=== PATIENT | male | born 1945 | race Caucasian/White ===

== ENCOUNTER 2018-06-08 15:35 | Inpatient (IN) ==
--- NOTE | 2018-06-08 16:06 | ED ---
HPI General Chief complaint: Extremity Injury, Lower Stated complaint: Phy Sent Time Seen by Provider: 06/08/18 15:45 Source: patient, family and RN notes reviewed Mode of arrival: ambulatory Limitations: no limitations History of Present Illness HPI Narrative: 73-year-old male presents to the emergency department for evaluation of bilateral lower extremity edema, weeping, erythema to the right lower extremity. Patient states he has had the drainage for approximately month. However, the swelling has worsened over the past 14 days. He also reports pain to the right leg, especially with walking. Current pain is 8/10. He has no pain to the left leg. Patient states he had fevers up to 102 on Tuesday and Tuesday. He denies any fevers now. He denies any chest pain or shortness of breath. He denies any abdominal pain. No nausea, vomiting, diarrhea. He attempted to go to [facility] yesterday, but the wait was too long so he went to an urgent care center who referred him to the emergency department. Patient reports history of coronary artery disease, skin cancer, hypertension, knee replacement. He is not currently on anticoagulants. Patient is here from [place], right at the end of March, will leave the end of August. Moderate severity. MD Complaint: Reports extremity pain and extremity swelling Onset (ago): week(s) (2) Pain Consistency: constant Location: Reports left, right and lower extremity Severity scale (1-10): 8 (RLE only) Quality: Reports aching Radiation: Reports none Relieving factors: immobilization Exacerbating factors: walking Associated symptoms: Reports fever; Denies chest pain, shortness of breath, myalgias, arthralgias and rash Related Data Home Medications Medication Instructions Recorded Confirmed albuterol sulfate [ProAir HFA] 2 puff INHALATION Q6H PRN 06/08/18 06/08/18 aspirin 81 mg PO DAILY 06/08/18 06/08/18 atorvastatin 40 mg PO QPM 06/08/18 06/08/18 bumetanide 2 mg PO DAILY 06/08/18 06/08/18 furosemide [Lasix] 40 mg PO DAILY 06/08/18 06/08/18 isosorbide mononitrate 60 mg PO BID 06/08/18 06/08/18 metoprolol succinate 100 mg PO DAILY 06/08/18 06/08/18 naproxen-diphenhydramine [Aleve PM] 1 tab PO HS 06/08/18 06/08/18 nitroglycerin 0.4 mg SUBLINGUAL Q5-15M PRN 06/08/18 06/08/18 ranitidine HCl [Zantac] 300 mg PO DAILY PRN 06/08/18 06/08/18 tiotropium bromide [Spiriva with 1 cap INHALATION DAILY 06/08/18 06/08/18 HandiHaler] Allergies Allergy/AdvReac Type Severity Reaction Status Date / Time Penicillins Allergy Severe syncope Verified 06/08/18 15:59 [facility] Social History Social History Substance History: No History of Abuse Second Hand Smoke Exposure: No Smoking Status: Former smoker How Often Do You Have a Drink Containing Alcohol: 2 to 4 times a month Exam Narrative Exam Narrative: GENERAL: Well-nourished, well-developed male patient, afebrile SKIN: Focused skin assessment warm/dry. Right lower extremity is erythematous from the toes to just past the knee with multiple weeping areas. Patient has some weeping areas to the left ankle with some mild erythema. HEAD: Normocephalic. Atraumatic EYES: No scleral icterus. No injection or drainage. NECK: Supple, trachea midline. No JVD or lymphadenopathy. CARDIOVASCULAR: Regular rate and rhythm without murmurs, gallops, or rubs. Bilateral pedal pulses are 2+ RESPIRATORY: Breath sounds equal bilaterally. No accessory muscle use. Lung sounds are clear to auscultation GASTROINTESTINAL: Abdomen soft, non-tender, nondistended. MUSCULOSKELETAL: No cyanosis. Bilateral 3+ lower extremity edema BACK: Nontender without obvious deformity. No CVA tenderness. Course Initial Documented Vital Signs Temperature 97.4 F L 06/08/18 15:40 Pulse Rate 100 H 06/08/18 15:40 Respiratory Rate 24 06/08/18 15:40 Blood Pressure 115/65 06/08/18 15:40 Pulse Oximetry 98 06/08/18 15:40 Last Documented Vital Signs Temperature 97.7 F 06/09/18 08:00 Pulse Rate 100 H 06/09/18 08:00 Respiratory Rate 18 06/09/18 08:00 Blood Pressure 118/70 06/09/18 08:00 Pulse Oximetry 94 L 06/09/18 08:00 Medical Decision Making MDM Narrative Medical decision making narrative: 73-year-old male presents to the emergency department for evaluation of bilateral lower extremity edema, weeping, erythema to the right lower extremity. IV access obtained. EKG, CBC, CMP, lactic acid, magnesium, PTT, PT/INR, blood cultures x2, chest x-ray, venous Doppler ultrasound bilateral lower extremities are ordered and pending. CBC shows leukocytosis of 16.3, left shift with neutrophils of 92.2. CMP shows hypokalemia of 3.2, BUN 36, creatinine of 1.52. Lactic acid is 1.7. Magnesium is 1.9. PTT is 37.5. PT/INR is 11.9/1.2. Chest x-ray shows the lungs are clear. US is negative for DVT. Patient is given Lasix 20 mg IV, Vancomycin 1 gm IV. His EKG shows atrial fibrillation which patient states he does not have a history of. Medical Screen Exam Complete: Yes Emergency Medical Condition: Yes Differential Diagnosis Differential Diagnosis: cellulitis vs. CHF vs. edema vs. electrolyte abnormality Medical Records Medical records reviewed: Yes I reviewed the patient's medical records. Lab Data Result diagrams: 06/09/18 04:28 06/09/18 04:28 Lab Results 06/08/18 06/08/18 06/08/18 Range/Units 16:06 16:06 16:06 WBC 16.3 H (4.0-11.0) th/mm3 RBC 4.31 L (4.50-5.90) mil/mm3 Hgb 13.8 (13.0-17.0) gm/dL Hct 40.8 (39.0-51.0) % MCV 94.8 (80.0-100.0) fL MCH 32.1 (27.0-34.0) pg MCHC 33.8 (32.0-36.0) % RDW 14.3 (11.6-17.2) % Plt Count 160 (150-450) th/mm3 MPV 9.2 (7.0-11.0) fL Neut % (Auto) 92.2 H (16.0-70.0) % Lymph % (Auto) 4.1 L (9.0-44.0) % Trego % (Auto) 3.6 (0.0-8.0) % Eos % (Auto) 0.0 (0.0-4.0) % Baso % (Auto) 0.1 (0.0-2.0) % Neut # (Auto) 15.0 H (1.8-7.7) th/mm3 Lymph # (Auto) 0.7 L (1.0-4.8) th/mm3 Trego # (Auto) 0.6 (0.0-0.9) th/mm3 Eos # (Auto) 0.0 (0.0-0.4) th/mm3 Baso # (Auto) 0.0 (0.0-0.2) th/mm3 WBC Differential . Differential Comment Auto diff final PT 11.9 H (9.8-11.6) sec INR 1.2 Ratio APTT 37.5 H (23.4-31.7) sec Sodium 140 (136-145) meq/L Potassium 3.2 L (3.5-5.1) meq/L Chloride 97 L (98-107) meq/L Carbon Dioxide 33.0 H (21.0-32.0) meq/L Anion Gap 10 (5-15) meq/L BUN 36 H (7-18) mg/dL Creatinine 1.52 H (0.60-1.30) mg/dL Estimated GFR 45 L (>89) mL/min Random Glucose 116 H (74-106) mg/dL Lactic Acid (0.4-2.0) mmol/L Calcium 9.2 (8.5-10.1) mg/dL Magnesium 1.9 (1.5-2.5) mg/dL Total Bilirubin 5.6 H (0.2-1.0) mg/dL AST 31 (15-37) U/L ALT 31 (12-78) U/L Alkaline Phosphatase 91 (45-117) U/L Total Creatine Kinase (39-308) U/L Troponin I (0.02-0.05) ng/mL B-Natriuretic Peptide (0-100) pg/mL Total Protein 7.8 (6.4-8.2) g/dL Albumin 3.2 L (3.4-5.0) g/dL TSH (0.358-3.740) uIU/mL Free T4 (0.76-1.46) ng/dL 06/08/18 06/08/18 06/08/18 Range/Units 16:06 16:06 16:18 WBC (4.0-11.0) th/mm3 RBC (4.50-5.90) mil/mm3 Hgb (13.0-17.0) gm/dL Hct (39.0-51.0) % MCV (80.0-100.0) fL MCH (27.0-34.0) pg MCHC (32.0-36.0) % RDW (11.6-17.2) % Plt Count (150-450) th/mm3 MPV (7.0-11.0) fL Neut % (Auto) (16.0-70.0) % Lymph % (Auto) (9.0-44.0) % Trego % (Auto) (0.0-8.0) % Eos % (Auto) (0.0-4.0) % Baso % (Auto) (0.0-2.0) % Neut # (Auto) (1.8-7.7) th/mm3 Lymph # (Auto) (1.0-4.8) th/mm3 Trego # (Auto) (0.0-0.9) th/mm3 Eos # (Auto) (0.0-0.4) th/mm3 Baso # (Auto) (0.0-0.2) th/mm3 WBC Differential Differential Comment PT (9.8-11.6) sec INR Ratio APTT (23.4-31.7) sec Sodium (136-145) meq/L Potassium (3.5-5.1) meq/L Chloride (98-107) meq/L Carbon Dioxide (21.0-32.0) meq/L Anion Gap (5-15) meq/L BUN (7-18) mg/dL Creatinine (0.60-1.30) mg/dL Estimated GFR (>89) mL/min Random Glucose (74-106) mg/dL Lactic Acid 1.7 (0.4-2.0) mmol/L Calcium (8.5-10.1) mg/dL Magnesium (1.5-2.5) mg/dL Total Bilirubin (0.2-1.0) mg/dL AST (15-37) U/L ALT (12-78) U/L Alkaline Phosphatase (45-117) U/L Total Creatine Kinase 78 (39-308) U/L Troponin I Less than 0.02 L (0.02-0.05) ng/mL B-Natriuretic Peptide 245 H (0-100) pg/mL Total Protein (6.4-8.2) g/dL Albumin (3.4-5.0) g/dL TSH (0.358-3.740) uIU/mL Free T4 (0.76-1.46) ng/dL 06/09/18 06/09/18 06/09/18 Range/Units 00:42 04:28 04:28 WBC 13.2 H (4.0-11.0) th/mm3 RBC 3.78 L (4.50-5.90) mil/mm3 Hgb 12.3 L (13.0-17.0) gm/dL Hct 35.3 L (39.0-51.0) % MCV 93.5 (80.0-100.0) fL MCH 32.6 (27.0-34.0) pg MCHC 34.9 (32.0-36.0) % RDW 14.2 (11.6-17.2) % Plt Count 146 L (150-450) th/mm3 MPV 9.2 (7.0-11.0) fL Neut % (Auto) 86.9 H (16.0-70.0) % Lymph % (Auto) 6.7 L (9.0-44.0) % Trego % (Auto) 6.1 (0.0-8.0) % Eos % (Auto) 0.2 (0.0-4.0) % Baso % (Auto) 0.1 (0.0-2.0) % Neut # (Auto) 11.5 H (1.8-7.7) th/mm3 Lymph # (Auto) 0.9 L (1.0-4.8) th/mm3 Trego # (Auto) 0.8 (0.0-0.9) th/mm3 Eos # (Auto) 0.0 (0.0-0.4) th/mm3 Baso # (Auto) 0.0 (0.0-0.2) th/mm3 WBC Differential . Differential Comment Auto diff final PT (9.8-11.6) sec INR Ratio APTT (23.4-31.7) sec Sodium 141 (136-145) meq/L Potassium 3.2 L (3.5-5.1) meq/L Chloride 101 (98-107) meq/L Carbon Dioxide 32.7 H (21.0-32.0) meq/L Anion Gap 7 (5-15) meq/L BUN 29 H (7-18) mg/dL Creatinine 0.99 (0.60-1.30) mg/dL Estimated GFR 74 L (>89) mL/min Random Glucose 81 (74-106) mg/dL Lactic Acid (0.4-2.0) mmol/L Calcium 8.4 L D (8.5-10.1) mg/dL Magnesium (1.5-2.5) mg/dL Total Bilirubin 3.9 H (0.2-1.0) mg/dL AST 48 H (15-37) U/L ALT 39 (12-78) U/L Alkaline Phosphatase 87 (45-117) U/L Total Creatine Kinase 57 (39-308) U/L Troponin I Less than 0.02 L (0.02-0.05) ng/mL B-Natriuretic Peptide (0-100) pg/mL Total Protein 6.6 D (6.4-8.2) g/dL Albumin 2.6 L D (3.4-5.0) g/dL TSH 0.736 (0.358-3.740) uIU/mL Free T4 1.26 (0.76-1.46) ng/dL Imaging Data Radiologist's impression: Chest X-Ray 06/08/18 15:59 CONCLUSION: The lungs are clear. Venous Doppler Study 06/08/18 15:59 CONCLUSION: 1. The study is negative for bilateral lower extremity deep venous thrombosis. ECG Data EKG Prior to Arrival: No Attestation: I personally reviewed and interpreted this ECG as follows: Discharge Plan Discharge Disposition Patient Disposition: ED Admit(ED Internal Use Only) Discharge Order Discharge Orders: ED Use Only Admit Order (Routine); Ordered 06/08/18 Ordered By: Марина Pathak Discharge Details Diagnosis: Cellulitis, Atrial fibrillation Physicians Team ED Provider: Lisa Fairchild ED Midlevel Provider: Марина Pathak Attending Provider: Krzysztof Ramires Other Providers: Jay Pendleton Status ED Status: Left Department Discharge Information Discharge Date/Time: 06/08/18 21:40
--- NOTE | 2018-06-08 16:19 | XR ---
EXAM DATE: 06/08/2018 4:16 PM EST AGE/SEX: 73 years / Male INDICATIONS: Short of breath CLINICAL DATA: This is the patient's initial encounter. Patient reports that signs and symptoms have been present for 1 day and indicates a pain score of 0/10. MEDICAL/SURGICAL HISTORY: Diabetes mellitus type II. Hypertension. None. COMPARISON: No prior exams available for comparison. FINDINGS: A single AP view of the chest demonstrates the lungs to be symmetrically aerated without evidence of mass, infiltrate or effusion. The cardiomediastinal contours are unremarkable. Osseous structures a re intact. CONCLUSION: The lungs are clear. Electronically signed by: Simran Dueñas MD Board Certified Radiologist 06/08/2018 4:18 PM EST
[2018-06-08 16:47] LABS: Baso % (Auto) 0.1 % (0.0-2.0); Hematocrit 40.8 % (39.0-51.0); Hemoglobin 13.8 gm/dL (13.0-17.0); Lymph # (Auto) 0.7 th/mm3 (1.0-4.8); Lymph % (Auto) 4.1 % (9.0-44.0); Mean Corpuscular HGB Conc 33.8 % (32.0-36.0); Mean Corpuscular Hemoglobin 32.1 pg (27.0-34.0); Mean Corpuscular Volume 94.8 fL (80.0-100.0); Mean Platelet Volume 9.2 fL (7.0-11.0); Mono # (Auto) 0.6 th/mm3 (0.0-0.9); Mono % (Auto) 3.6 % (0.0-8.0); Neut % (Auto) 92.2 % (16.0-70.0); Platelet Count 160 th/mm3 (150-450); Red Blood Count 4.31 mil/mm3 (4.50-5.90); Red Cell Distribution Width 14.3 % (11.6-17.2); White Blood Count 16.3 th/mm3 (4.0-11.0)
[2018-06-08 16:55] LABS: Activated Partial Thrombo Time 37.5 sec (23.4-31.7); INR 1.2 Ratio; Prothrombin Time 11.9 sec (9.8-11.6)
[2018-06-08 17:00] LABS: Albumin 3.2 g/dL (3.4-5.0); Anion Gap 10 meq/L (5-15); Aspartate Aminotransferase 31 U/L (15-37); Blood Urea Nitrogen 36 mg/dL (7-18); Calcium 9.2 mg/dL (8.5-10.1); Chloride 97 meq/L (98-107); Glomerular Filtration Rate 45 mL/min (>89); Glucose,Random 116 mg/dL (74-106); Magnesium 1.9 mg/dL (1.5-2.5); Potassium 3.2 meq/L (3.5-5.1); Sodium 140 meq/L (136-145)
[2018-06-08 17:03] LABS: Alanine Aminotransferase 31 U/L (12-78); Alkaline Phosphatase 91 U/L (45-117); Total Protein 7.8 g/dL (6.4-8.2)
--- NOTE | 2018-06-08 17:20 | US ---
EXAM DATE: 06/08/2018 5:16 PM EST AGE/SEX: 73 years / Male INDICATIONS: Bilateral leg swelling. CLINICAL DATA: This is the patient's initial encounter. Patient reports that signs and symptoms have been present for 1 day and indicates a pain score of 2/10. MEDICAL/SURGICAL HISTORY: Carcinoma, basal cell. Hypertension. 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 CAD. COPD. High cholesterol. . Arthroscopic knee surgery. Knee dede int replacement. COMPARISON: No prior exams available for comparison. TECHNIQUE: Venous ultrasound of both lower extremities was performed from the inguinal ligament to t he proximal calf. Real-time, color Doppler and spectral tracing, compression and augmentation techni ques were used. FINDINGS: Right Leg: Normal compression of the deep venous system from the inguinal region to the proximal dajuan f. No echogenic clot is seen. Normal response of the venous system to augmentation and respiration. Left Leg: Normal compression of the deep venous system from the inguinal region to the proximal calf . No echogenic clot is seen. Normal response of the venous system to augmentation and respiration. Other: None. CONCLUSION: 1. The study is negative for bilateral lower extremity deep venous thrombosis. Electronically signed by: Moreno Dowd MD Board Certified Radiologist 06/08/2018 5:19 PM EST
[2018-06-08] MEDS ORDERED: Vancomycin Inj 1,000 MG in Sodium Chlor 0.9% Inj 250 ML IV.SIG ONE (17:27)
--- NOTE | 2018-06-08 18:21 | P.HPFP ---
History of Present Illness Primary Care Physician: Bradford De La Cruz <Krzysztof Ramires - 06/09/18 11:17> Bradford De La Cruz <Terence MartelStephanie B - 06/08/18 18:21> Chief Complaint: Right lower extremity pain and swelling <Stephanie Stone - 06/08/18 23:54> History of Present Illness: 73-year-old male presents to the emergency department for evaluation of bilateral lower extremity edema, blistering, purulent discharge with spreading erythema to the right lower extremity for the past few days. Patient states he has had multiple areas of skin breakdown on the legs for greater than 2 months but noticed significantly increased redness and swelling of the top of the right foot about a week ago which continued to spread up the leg to the knee by yesterday. He was seen in urgent care, by Dr. Guido who referred him to the emergency department today. He notes that the skin "started to blister up "and had serosanguineous drainage for the past day or 2, and notes that today it looks more like pus. His , who used to work as a nurse has been attempting to apply dressings daily to these wounds. He notes mild to moderate pain in the leg, which is worse with weightbearing. Denies recent trauma to the leg. Denies numbness, tingling or weakness of the leg. Patient admits to a fever of up to 102F on Tuesday and Tuesday of this week, with intermittent chills overnight. He has been taking Aleve 2 times daily at home for pain in the leg. Patient also notes shortness of breath, which has increased in the past couple of days. He has shortness of breath at baseline due to COPD, for which he uses an albuterol and ipratropium inhalers daily. He denies chest pain, palpitations , N/V/D, constipation, or dysuria. Past medical history: COPD CAD, 3 vessel bypass without stent placement due to occlusion HTN BCC SCC melanoma Past surgical history: Three-vessel cardiac bypass Bilateral total knee replacement Social history: Patient is originally from [place] and spends half the year in [place], from March to August, and the rest of the year back in [place]. Former smoker, quit this year. Greater than 20 pack history of smoking. Drinks alcohol occasionally, less than once a week. Denies illicit drug use. <Stephanie Stone 02/22/19 01:31> - Diagnosis (1) Sepsis (2) Cellulitis (3) Atrial fibrillation (4) Hypokalemia (5) CHF (congestive heart failure) (6) Nutrition, metabolism, and development symptoms (7) DVT prophylaxis <Krzysztof Ramires 06/09/18 11:17> (1) Sepsis (2) Cellulitis (3) Atrial fibrillation (4) Hypokalemia (5) CHF (congestive heart failure) (6) Nutrition, metabolism, and development symptoms (7) DVT prophylaxis <[facility] Stephanie Martel 06/09/18 01:14> Inpatient Certification: I certify that the inpatient services were ordered in accordance with Medicare regulations governing the order. This includes certification that hospital inpatient services are reasonable and necessary and in the case of services not specified as inpatient-only under 42 CFR 419.22(n), that they are appropriately provided as inpatient services in accordance to with the 2-midnight benchmark under 43 CFR 412.3(e) <Krzysztof Ramires 06/09/18 11:17> Review of Systems Constitutional: Reports chills, Reports fever(s), Denies weakness <[place] [id number] Stephanie 06/09/18 01:31> Eyes: Denies change in vision, Denies discharge <[place] [id number] 01:31> Ears, Nose, Mouth, and Throat: Denies nasal congestion, Denies nasal discharge, Denies sore throat <[place] [id number] 06/09/18 01:31> Cardiovascular: Denies chest pain, Denies irregular heart rhythm <[place] [id number] Stephanie 06/09/18 01:31> Respiratory: Denies coughing up blood, Denies shortness of breath, Denies wheezing <[place] [id number] 06/09/18 01:31> Gastrointestinal: Denies abdominal pain, Denies loose stools, Denies nausea, Denies vomiting <[place] [id number] 06/09/18 01:31> Genitourinary: Denies blood in urine, Denies painful urination <[place] [id number] Stephanie 06/09/18 01:31> Musculoskeletal: Reports abnormal walking (Due to pain on weightbearing of right leg), Denies muscle weakness, Denies numbness, Denies tingling <Teodoramatt Tahmina Stephanie Gant 06/09/18 01:31> Skin/Breast: Reports lesions <Teodoramatt Stephanie Martel 06/09/18 01:31> PMFSH - History History Provided By: Patient, Family Member <Stephanie Stone 06/08/18 18: 21> - Medical History Medical History: Medical History (Last Updated 06/08/18 @ 16:02 by [employer]) Basal cell carcinoma Blockage of coronary artery of heart CAD (coronary artery disease) COPD (chronic obstructive pulmonary disease) Chest pain HTN (hypertension) High cholesterol Squamous cell carcinoma <Krzysztof Ramires 06/09/18 11:17> Medical History (Last Updated 06/08/18 @ 16:02 by [employer]) Basal cell carcinoma Blockage of coronary artery of heart CAD (coronary artery disease) COPD (chronic obstructive pulmonary disease) Chest pain HTN (hypertension) High cholesterol Squamous cell carcinoma <Terence MartelStephanie Gant 06/08/18 18:21> - Surgical History Surgical History: Surgical History (Last Updated 06/08/18 @ 16:02 by [employer]) H/O arthroscopic knee surgery Knee joint replacement status <GlennKrzysztof michaud 06/09/18 11:17> Surgical History (Last Updated 06/08/18 @ 16:02 by [employer]) H/O arthroscopic knee surgery Knee joint replacement status <Terence MartelStephanie 06/08/18 18:21> - Tobacco History Second Hand Smoke Exposure: No <Terence TahminaStephanie Gant 06/08/18 18:21> Tobacco Use In Past 30 Days: No <Terence MartelStephanie Gant 06/08/18 18:21> Smoking Status: Former smoker <Terence TahminaStephanie Gant 06/08/18 18:21> - Alcohol History How Often Do You Have a Drink Containing Alcohol: Never <Terence TahminaStephanie Gant 06/08/18 18:21> - Substance Use History Substance History: No History of Abuse <Terence TahminaStephanie Gant 06/08/18 18:21> - Immunization History Tetanus Immunization: <5 Years <Terence TahminaStephanie Gant 06/08/18 18:21> Medications and Allergies Allergies Allergy/AdvReac Type Severity Reaction Status Date / Time Penicillins Allergy Severe syncope Verified 06/08/18 15:59 <Krzysztof Ramires - 06/09/18 11:17> Home Medications Medication Instructions Recorded Confirmed Type albuterol sulfate [ProAir HFA] 2 puff INHALATION Q6H PRN 06/08/18 06/08/18 History aspirin 81 mg PO DAILY 06/08/18 06/08/18 History atorvastatin 40 mg PO QPM 06/08/18 06/08/18 History bumetanide 2 mg PO DAILY 06/08/18 06/08/18 History furosemide [Lasix] 40 mg PO DAILY 06/08/18 06/08/18 History isosorbide mononitrate 60 mg PO BID 06/08/18 06/08/18 History metoprolol succinate 100 mg PO DAILY 06/08/18 06/08/18 History naproxen-diphenhydramine [Aleve PM] 1 tab PO HS 06/08/18 06/08/18 History nitroglycerin 0.4 mg SUBLINGUAL Q5-15M PRN 06/08/18 06/08/18 History ranitidine HCl [Zantac] 300 mg PO DAILY PRN 06/08/18 06/08/18 History tiotropium bromide [Spiriva with 1 cap INHALATION DAILY 06/08/18 06/08/18 History HandiHaler] <Krzysztof Ramires - 06/09/18 11:17> Active Medications: Active Medications Acetaminophen (Tylenol) 650 mg PO Q4H PRN PRN Reason: Temp > 100.4 Albuterol (Ventolin Hfa Inh) 2 puff INH Q6H PRN PRN Reason: Shortness Of Breath Aspirin (Ecotrin) 81 mg PO DAILY [facility] Last Admin: 06/09/18 09:06 Dose: 81 mg Atorvastatin Calcium (Lipitor) 40 mg PO DAILY@1800 [facility] Digoxin (Lanoxin) 125 mcg PO DAILY [facility] Heparin Sodium (Porcine) (Heparin Inj) 5,000 units SQ DAILY [facility] Last Admin: 06/09/18 09:06 Dose: 5,000 units Vancomycin HCl 1,500 mg/ (Sodium Chloride) 515 mls @ 257.5 mls/hr IV.SIG Q18H [facility] Metoprolol Succinate (Toprol Xl) 100 mg PO DAILY [facility] Last Admin: 06/09/18 09:06 Dose: 100 mg Miscellaneous Information ([facility] Ordered Lab Info) 0 each OTHER ONCE ONE Stop: 06/11/18 01:46 Ondansetron HCl (Zofran Inj) 4 mg IV.PUSH Q6H PRN PRN Reason: NAUSEA OR VOMITING Pharmacy Profile Note (Vancomycin Consult Pharmacy) 1 each OTHER UNSCH PRN PRN Reason: Pharmacy to dose Sodium Chloride (Ns Flush) 2 ml IV.FLUSH BID [facility] Last Admin: 06/09/18 09:07 Dose: 2 ml Sodium Chloride (Ns Flush) 2 ml IV.FLUSH PRN PRN PRN Reason: FLUSH AFTER USING IV ACCESS Tiotropium Java (Spiriva 18 Mcg Inh) 18 mcg INH DAILY [facility] Last Admin: 06/09/18 09:07 Dose: 18 mcg <Krzysztof Ramires - 06/09/18 11:17> Active Medications Vancomycin HCl 1,000 mg/ (Sodium Chloride) 250 mls @ 250 mls/hr IV.SIG ONCE ONE Stop: 06/08/18 18:26 <Stephanie Stone - 06/08/18 18:37> Exam Vital signs: Vital Signs 06/08/18 15:40 06/08/18 16:05 06/08/18 16:30 Temperature 97.4 F L Pulse Rate 100 H 80 Respiratory Rate 24 18 Blood Pressure 115/65 106/56 L Pulse Oximetry 98 97 97 06/08/18 16:36 06/08/18 17:53 06/08/18 19:24 Temperature Pulse Rate 100 H Respiratory Rate 15 Blood Pressure 101/54 L Pulse Oximetry 100 100 98 06/08/18 20:55 06/08/18 21:15 06/09/18 00:00 Temperature 97.9 F 98 F Pulse Rate 118 H 99 H 102 H Respiratory Rate 18 18 Blood Pressure 109/61 116/75 Pulse Oximetry 95 98 06/09/18 04:00 06/09/18 04:15 06/09/18 04:50 Temperature 97.8 F Pulse Rate 104 H 91 H Respiratory Rate 17 Blood Pressure 113/68 Pulse Oximetry 100 96 06/09/18 08:00 06/09/18 11:14 Temperature 97.7 F Pulse Rate 100 H Respiratory Rate 18 Blood Pressure 118/70 Pulse Oximetry 94 L 94 L Intake & Output 06/08/18 06/09/18 06/09/18 18:59 06:59 18:59 Intake Total 1590 / 1590 Output Total 850 / 850 Balance 740 / 740 Weight 124.284 kg 124.5 kg Intake: IV 1350 / 1350 NS Inj 1,000 ML @ 1000 mls/hr 1000 / 1000 IV.SIG BOLUS MARQUITA Rx#:[id number] Vancomycin Inj 1,000 MG In NS 250 / 250 Inj 250 ML @ 250 mls/hr IV.SIG ONCE ONE Rx#:[id number] Vancomycin Inj 500 MG In NS Inj 100 / 100 100 ML @ 200 mls/hr IV.SIG ONCE ONE Rx#:[id number] Oral 240 / 240 Output: Urine 850 / 850 Other: Date of Last Bowel Movement 06/08/18 # Bowel Movements 0 Weight On Admission 121.8 kg <Krzysztof Ramires - 06/09/18 11:17> Vital Signs 06/08/18 15:40 06/08/18 16:05 06/08/18 16:30 Temperature 97.4 F L Pulse Rate 100 H 80 Respiratory Rate 24 18 Blood Pressure 115/65 106/56 L Pulse Oximetry 98 97 97 06/08/18 16:36 06/08/18 17:53 Temperature Pulse Rate Respiratory Rate Blood Pressure Pulse Oximetry 100 100 Intake & Output 06/07/18 06/08/18 06/08/18 18:59 06:59 18:59 Weight 124.284 kg <Terence MartelStephanie B - 06/08/18 18:21> Narrative: GENERAL: 73-year-old, obese male sitting up in bed. In no acute distress. SKIN: Warm and dry. Right lower extremity with significant erythema extending from dorsal foot to anterior knee, including posterior thigh up to gluteal crease. 3+ pitting edema. Large area covering cath with obvious blistering, increased warmth and purulent drainage. Left lower extremity with multiple lesions on anterior yoon measuring between 1-3 cm in diameter with purulent drainage and surrounding erythema without significant fluctuance or induration. HEAD: Atraumatic. Normocephalic. EYES: EMOI. PERRLA. No scleral icterus. No injection or drainage. ENT: No nasal bleeding or discharge. Mucous membranes pink and moist. Airway patent. CARDIOVASCULAR: Regular rate and rhythm. No murmur. RESPIRATORY: No accessory muscle use. Clear to auscultation with equal breath sounds. No crackles, wheeze, rales or rhonchi. GASTROINTESTINAL: Abdomen soft, non-tender, nondistended. Hepatic and splenic margins not palpable. MUSCULOSKELETAL: Extremities without clubbing, cyanosis, or edema. No obvious deformities. No calf tenderness. NEUROLOGICAL: Awake and alert. No obvious cranial nerve deficits. Motor grossly within normal limits. Five out of 5 muscle strength in the arms and legs. Normal speech. PSYCHIATRIC: Appropriate mood and affect; insight and judgment normal. <Stephanie Stone - 06/09/18 01:31> Results - Labs Result diagrams: 06/09/18 04:28 06/09/18 04:28 <Krzysztof Ramires - 06/09/18 11:17> Abnormal lab results 06/08/18 06/08/18 06/08/18 Range/Units 16:06 16:06 16:06 WBC 16.3 H (4.0-11.0) th/mm3 RBC 4.31 L (4.50-5.90) mil/mm3 Hgb (13.0-17.0) gm/dL Hct (39.0-51.0) % Plt Count (150-450) th/mm3 Neut % (Auto) 92.2 H (16.0-70.0) % Lymph % (Auto) 4.1 L (9.0-44.0) % Neut # (Auto) 15.0 H (1.8-7.7) th/mm3 Lymph # (Auto) 0.7 L (1.0-4.8) th/mm3 PT 11.9 H (9.8-11.6) sec APTT 37.5 H (23.4-31.7) sec Potassium 3.2 L (3.5-5.1) meq/L Chloride 97 L (98-107) meq/L Carbon Dioxide 33.0 H (21.0-32.0) meq/L BUN 36 H (7-18) mg/dL Creatinine 1.52 H (0.60-1.30) mg/dL Estimated GFR 45 L (>89) mL/min Random Glucose 116 H (74-106) mg/dL Calcium (8.5-10.1) mg/dL Total Bilirubin 5.6 H (0.2-1.0) mg/dL Direct Bilirubin (0.0-0.2) mg/dL Indirect Bilirubin (0.0-0.8) mg/dL AST (15-37) U/L Troponin I (0.02-0.05) ng/mL B-Natriuretic Peptide (0-100) pg/mL Albumin 3.2 L (3.4-5.0) g/dL 06/08/18 06/08/18 06/09/18 Range/Units 16:06 16:06 00:42 WBC (4.0-11.0) th/mm3 RBC (4.50-5.90) mil/mm3 Hgb (13.0-17.0) gm/dL Hct (39.0-51.0) % Plt Count (150-450) th/mm3 Neut % (Auto) (16.0-70.0) % Lymph % (Auto) (9.0-44.0) % Neut # (Auto) (1.8-7.7) th/mm3 Lymph # (Auto) (1.0-4.8) th/mm3 PT (9.8-11.6) sec APTT (23.4-31.7) sec Potassium (3.5-5.1) meq/L Chloride (98-107) meq/L Carbon Dioxide (21.0-32.0) meq/L BUN (7-18) mg/dL Creatinine (0.60-1.30) mg/dL Estimated GFR (>89) mL/min Random Glucose (74-106) mg/dL Calcium (8.5-10.1) mg/dL Total Bilirubin (0.2-1.0) mg/dL Direct Bilirubin (0.0-0.2) mg/dL Indirect Bilirubin (0.0-0.8) mg/dL AST (15-37) U/L Troponin I Less than 0.02 L Less than 0.02 L (0.02-0.05) ng/mL B-Natriuretic Peptide 245 H (0-100) pg/mL Albumin (3.4-5.0) g/dL 06/09/18 06/09/18 06/09/18 Range/Units 04:28 04:28 04:28 WBC 13.2 H (4.0-11.0) th/mm3 RBC 3.78 L (4.50-5.90) mil/mm3 Hgb 12.3 L (13.0-17.0) gm/dL Hct 35.3 L (39.0-51.0) % Plt Count 146 L (150-450) th/mm3 Neut % (Auto) 86.9 H (16.0-70.0) % Lymph % (Auto) 6.7 L (9.0-44.0) % Neut # (Auto) 11.5 H (1.8-7.7) th/mm3 Lymph # (Auto) 0.9 L (1.0-4.8) th/mm3 PT (9.8-11.6) sec APTT (23.4-31.7) sec Potassium 3.2 L (3.5-5.1) meq/L Chloride (98-107) meq/L Carbon Dioxide 32.7 H (21.0-32.0) meq/L BUN 29 H (7-18) mg/dL Creatinine (0.60-1.30) mg/dL Estimated GFR 74 L (>89) mL/min Random Glucose (74-106) mg/dL Calcium 8.4 L D (8.5-10.1) mg/dL Total Bilirubin 3.9 H 3.9 H (0.2-1.0) mg/dL Direct Bilirubin 0.7 H (0.0-0.2) mg/dL Indirect Bilirubin 3.2 H (0.0-0.8) mg/dL AST 48 H (15-37) U/L Troponin I (0.02-0.05) ng/mL B-Natriuretic Peptide (0-100) pg/mL Albumin 2.6 L D (3.4-5.0) g/dL Short CBC 06/08/18 06/09/18 Range/Units 16:06 04:28 WBC 16.3 H 13.2 H (4.0-11.0) th/mm3 Hgb 13.8 12.3 L (13.0-17.0) gm/dL Hct 40.8 35.3 L (39.0-51.0) % Plt Count 160 146 L (150-450) th/mm3 BMP 06/08/18 06/09/18 16:06 04:28 Sodium 140 141 Potassium 3.2 L 3.2 L Chloride 97 L 101 Carbon Dioxide 33.0 H 32.7 H BUN 36 H 29 H Creatinine 1.52 H 0.99 Calcium 9.2 8.4 L D Cardiac Enzymes 06/08/18 06/09/18 Range/Units 16:06 00:42 Total Creatine Kinase 78 57 (39-308) U/L Troponin I Less than 0.02 L Less than 0.02 L (0.02-0.05) ng/mL Liver Function 06/08/18 06/09/18 06/09/18 Range/Units 16:06 04:28 04:28 Total Bilirubin 5.6 H 3.9 H 3.9 H (0.2-1.0) mg/dL Direct Bilirubin 0.7 H (0.0-0.2) mg/dL AST 31 48 H (15-37) U/L ALT 31 39 (12-78) U/L Alkaline Phosphatase 91 87 (45-117) U/L Albumin 3.2 L 2.6 L D (3.4-5.0) g/dL <Krzysztof Ramires - 06/09/18 11:17> Abnormal lab results 06/08/18 06/08/18 06/08/18 Range/Units 16:06 16:06 16:06 WBC 16.3 H (4.0-11.0) th/mm3 RBC 4.31 L (4.50-5.90) mil/mm3 Neut % (Auto) 92.2 H (16.0-70.0) % Lymph % (Auto) 4.1 L (9.0-44.0) % Neut # (Auto) 15.0 H (1.8-7.7) th/mm3 Lymph # (Auto) 0.7 L (1.0-4.8) th/mm3 PT 11.9 H (9.8-11.6) sec APTT 37.5 H (23.4-31.7) sec Potassium 3.2 L (3.5-5.1) meq/L Chloride 97 L (98-107) meq/L Carbon Dioxide 33.0 H (21.0-32.0) meq/L BUN 36 H (7-18) mg/dL Creatinine 1.52 H (0.60-1.30) mg/dL Estimated GFR 45 L (>89) mL/min Random Glucose 116 H (74-106) mg/dL Total Bilirubin 5.6 H (0.2-1.0) mg/dL B-Natriuretic Peptide (0-100) pg/mL Albumin 3.2 L (3.4-5.0) g/dL 06/08/18 Range/Units 16:06 WBC (4.0-11.0) th/mm3 RBC (4.50-5.90) mil/mm3 Neut % (Auto) (16.0-70.0) % Lymph % (Auto) (9.0-44.0) % Neut # (Auto) (1.8-7.7) th/mm3 Lymph # (Auto) (1.0-4.8) th/mm3 PT (9.8-11.6) sec APTT (23.4-31.7) sec Potassium (3.5-5.1) meq/L Chloride (98-107) meq/L Carbon Dioxide (21.0-32.0) meq/L BUN (7-18) mg/dL Creatinine (0.60-1.30) mg/dL Estimated GFR (>89) mL/min Random Glucose (74-106) mg/dL Total Bilirubin (0.2-1.0) mg/dL B-Natriuretic Peptide 245 H (0-100) pg/mL Albumin (3.4-5.0) g/dL Short CBC 06/08/18 Range/Units 16:06 WBC 16.3 H (4.0-11.0) th/mm3 Hgb 13.8 (13.0-17.0) gm/dL Hct 40.8 (39.0-51.0) % Plt Count 160 (150-450) th/mm3 BMP 06/08/18 16:06 Sodium 140 Potassium 3.2 L Chloride 97 L Carbon Dioxide 33.0 H BUN 36 H Creatinine 1.52 H Calcium 9.2 Liver Function 06/08/18 Range/Units 16:06 Total Bilirubin 5.6 H (0.2-1.0) mg/dL AST 31 (15-37) U/L ALT 31 (12-78) U/L Alkaline Phosphatase 91 (45-117) U/L Albumin 3.2 L (3.4-5.0) g/dL <Teodoramatt Stephanie Martel Alfreda - 06/08/18 18:21> - Imaging Impressions Chest X-Ray 06/08/18 15:59 CONCLUSION: The lungs are clear. Venous Doppler Study 06/08/18 15:59 CONCLUSION: 1. The study is negative for bilateral lower extremity deep venous thrombosis. <Krzysztof Ramires - 06/09/18 11:17> Impressions Chest X-Ray 06/08/18 15:59 CONCLUSION: The lungs are clear. Venous Doppler Study 06/08/18 15:59 CONCLUSION: 1. The study is negative for bilateral lower extremity deep venous thrombosis. <Terence Stephanie Martel - 06/08/18 18:21> Caprini VTE Risk Assessment Caprini VTE Risk Assessment: Moderate/High Risk (score >= 2) <Terence MartelStephanie Alfreda - 06/09/18 01:31> Caprini Risk Assessment Model: Point Value = 1 Point Value = 2 Point Value = 3 Point Value = 5 Age 41-60 Minor surgery BMI > 25 kg/m2 Swollen legs Varicose veins or History of unexplained or recurrent spontaneous Oral contraceptives or hormone replacement Sepsis (< 1 month) Serious lung disease, including pneumonia (< 1 month) Abnormal pulmonary function Acute myocardial infarction Congestive heart failure (< 1 month) History of inflammatory bowel disease Medical patient at bed rest Age 61-74 Arthroscopic surgery Major open surgery (> 45 min) Laparoscopic surgery (> 45 min) Malignancy Confined to bed (> 72 hours) Immobilizing plaster cast Central venous access Age >= 75 History of VTE Family history of VTE Factor V Leiden Prothrombin [id number] Lupus anticoagulant Anticardiolipin antibodies Elevated serum homocysteine Heparin-induced thrombocytopenia Other congenital or acquired thrombophilia Stroke (< 1 month) Elective arthroplasty Hip, pelvis, or leg fracture Acute spinal cord injury (< 1 month) <Krzysztof Ramires 06/09/18 11:17> Point Value = 1 Point Value = 2 Point Value = 3 Point Value = 5 Age 41-60 Minor surgery BMI > 25 kg/m2 Swollen legs Varicose veins or History of unexplained or recurrent spontaneous Oral contraceptives or hormone replacement Sepsis (< 1 month) Serious lung disease, including pneumonia (< 1 month) Abnormal pulmonary function Acute myocardial infarction Congestive heart failure (< 1 month) History of inflammatory bowel disease Medical patient at bed rest Age 61-74 Arthroscopic surgery Major open surgery (> 45 min) Laparoscopic surgery (> 45 min) Malignancy Confined to bed (> 72 hours) Immobilizing plaster cast Central venous access Age >= 75 History of VTE Family history of VTE Factor V Leiden Prothrombin [id number] Lupus anticoagulant Anticardiolipin antibodies Elevated serum homocysteine Heparin-induced thrombocytopenia Other congenital or acquired thrombophilia Stroke (< 1 month) Elective arthroplasty Hip, pelvis, or leg fracture Acute spinal cord injury (< 1 month) <Stephanie Stone B - 06/08/18 18:21> Prophylaxis Regimen: Total Risk Factor Score Risk Level Prophylaxis Regimen 0-1 Low Early ambulation 2 Moderate Order ONE of the following: *Sequential Compression Device (SCD) *Heparin 5000 units SQ BID 3-4 Higher Order ONE of the following medications: *Heparin 5000 units SQ TID *Enoxaparin/Lovenox 40 mg SQ daily (WT < 150 kg, CrCl > 30 mL/min) *Enoxaparin/Lovenox 30 mg SQ daily (WT < 150 kg, CrCl > 10-29 mL/min) *Enoxaparin/Lovenox 30 mg SQ BID (WT < 150 kg, CrCl > 30 mL/min) AND/OR *Sequential Compression Device (SCD) 5 or more Highest Order ONE of the following medications: *Heparin 5000 units SQ TID (Preferred with Epidurals) *Enoxaparin/Lovenox 40 mg SQ daily (WT < 150 kg, CrCl > 30 mL/min) *Enoxaparin/Lovenox 30 mg SQ daily (WT < 150 kg, CrCl > 10-29 mL/min) *Enoxaparin/Lovenox 30 mg SQ BID (WT < 150 kg, CrCl > 30 mL/min) AND *Sequential Compression Device (SCD) <Krzysztof Ramires - 06/09/18 11:17> Total Risk Factor Score Risk Level Prophylaxis Regimen 0-1 Low Early ambulation 2 Moderate Order ONE of the following: *Sequential Compression Device (SCD) *Heparin 5000 units SQ BID 3-4 Higher Order ONE of the following medications: *Heparin 5000 units SQ TID *Enoxaparin/Lovenox 40 mg SQ daily (WT < 150 kg, CrCl > 30 mL/min) *Enoxaparin/Lovenox 30 mg SQ daily (WT < 150 kg, CrCl > 10-29 mL/min) *Enoxaparin/Lovenox 30 mg SQ BID (WT < 150 kg, CrCl > 30 mL/min) AND/OR *Sequential Compression Device (SCD) 5 or more Highest Order ONE of the following medications: *Heparin 5000 units SQ TID (Preferred with Epidurals) *Enoxaparin/Lovenox 40 mg SQ daily (WT < 150 kg, CrCl > 30 mL/min) *Enoxaparin/Lovenox 30 mg SQ daily (WT < 150 kg, CrCl > 10-29 mL/min) *Enoxaparin/Lovenox 30 mg SQ BID (WT < 150 kg, CrCl > 30 mL/min) AND *Sequential Compression Device (SCD) <Stephanie Stone - 06/08/18 18:21> Assessment and Plan - Assessment (1) Sepsis Code(s): A41.9 - Sepsis, unspecified organism Status: Acute (2) Cellulitis Code(s): L03.90 - Cellulitis, unspecified Status: Acute (3) Atrial fibrillation Code(s): I48.91 - Unspecified atrial fibrillation Status: Acute (4) Hypokalemia Code(s): E87.6 - Hypokalemia Status: Acute (5) CHF (congestive heart failure) Code(s): I50.9 - Heart failure, unspecified Status: Acute (6) Nutrition, metabolism, and development symptoms Code(s): R63.8 - Other symptoms and signs concerning food and fluid intake Status: Acute (7) DVT prophylaxis Status: Acute <Krzysztof Ramires - 06/09/18 11:17> (1) Sepsis Code(s): A41.9 - Sepsis, unspecified organism Status: Acute (2) Cellulitis Code(s): L03.90 - Cellulitis, unspecified Status: Acute (3) Atrial fibrillation Code(s): I48.91 - Unspecified atrial fibrillation Status: Acute (4) Hypokalemia Code(s): E87.6 - Hypokalemia Status: Acute (5) CHF (congestive heart failure) Code(s): I50.9 - Heart failure, unspecified Status: Acute (6) Nutrition, metabolism, and development symptoms Code(s): R63.8 - Other symptoms and signs concerning food and fluid intake Status: Acute (7) DVT prophylaxis Status: Acute <Stephanie Stone Alfreda - 06/09/18 01:14> - Assessment and Plan Sepsis secondary to right lower extremity cellulitis Tachycardic to 100 bpm with white blood cell count 16.3 and mild hypotension down to 106/56 -Blood cultures pending -Wound cultures ordered -Lactic acid 1.7, within normal limits -1 L normal saline bolus ordered. Will reassess volume status prior to giving second bolus or starting maintenance fluids, due to history of CHF -Started vancomycin in the ED -Continue vancomycin 1.5 g every 24 hours Atrial fibrillation, new onset, undetermined timing CHADS2 VASC: 5, 7.2% annual stroke risk HAS BLED: 1, relatively low risk for bleeding -Cardiac telemetry -ACS work up negative thus far -Magnesium 1.9 -BNP 245 -TSH/Free T4 ordered -Echocardiogram ordered -Cardiology consulted for further workup of atrial fibrillation, appreciate recommendations. Hypokalemia, 3.2 -Potassium chloride 40 mEq p.o. x1 CHF Unsure of last echo, or ejection fraction -BNP elevated at 245 -Lasix 20 mg IV given in the ED FEN Fluids: 1 L normal saline bolus. Will consider gentle IVF based on volume status following bolus. Electrolytes: Hypokalemia as noted above. Continue to monitor and replete as necessary. Nutrition: Regular diet DVT prophylaxis -Subcutaneous heparin dw Dr. Jhaveri <Stephanie Stone - 06/09/18 01:31> - Attending Attestation The exam, history, and the medical decision-making described in the above note were completed with the assistance of the resident physician. I reviewed and agree with the findings presented. I attest that I had a [id number] encounter with the patient on the next day, and personally performed and documented my assessment and findings in the medical record. <Krzysztof Ramires - 06/09/18 11:17> <Teodoramatt MartelStephanie Alfreda - Last Filed: 06/09/18 01:14> (2) Cellulitis Qualifiers: Site of cellulitis: extremity Site of cellulitis of extremity: lower extremity Laterality: right Qualified Code(s): L03.115 - Cellulitis of right lower limb (3) Atrial fibrillation Qualifiers: Atrial fibrillation type: unspecified Qualified Code(s): I48.91 - Unspecified atrial fibrillation <Krzysztof Ramires - Last Filed: 06/09/18 11:17> (2) Cellulitis Qualifiers: Site of cellulitis: extremity Site of cellulitis of extremity: lower extremity Laterality: right Qualified Code(s): L03.115 - Cellulitis of right lower limb (3) Atrial fibrillation Qualifiers: Atrial fibrillation type: unspecified Qualified Code(s): I48.91 - Unspecified atrial fibrillation <Stephanie Stone - Last Filed: 06/09/18 01:14> (2) Cellulitis Qualifiers: Site of cellulitis: extremity Site of cellulitis of extremity: lower extremity Laterality: right Qualified Code(s): L03.115 - Cellulitis of right lower limb (3) Atrial fibrillation Qualifiers: Atrial fibrillation type: unspecified Qualified Code(s): I48.91 - Unspecified atrial fibrillation <Krzysztof Ramires - Last Filed: 06/09/18 11:17> (2) Cellulitis Qualifiers: Site of cellulitis: extremity Site of cellulitis of extremity: lower extremity Laterality: right Qualified Code(s): L03.115 - Cellulitis of right lower limb (3) Atrial fibrillation Qualifiers: Atrial fibrillation type: unspecified Qualified Code(s): I48.91 - Unspecified atrial fibrillation
[2018-06-08] MEDS ORDERED: Acetaminophen 325 MG Tablet PO PRN (18:46)
[2018-06-08] MEDS ORDERED: Vancomycin Consult Pharmacy OTHER PRN (18:52)
[2018-06-08] MEDS ORDERED: Vancomycin Inj 1,250 MG in Sodium Chlor 0.9% Inj 250 ML IV.SIG SCH (19:00)
[2018-06-08] MEDS: Heparin - SQ 10,000 UNITS/ML Vial SQ SCH (20:31)
[2018-06-08] MEDS ORDERED: Sod Chloride 0.9% Inj 1,000 ML IV.SIG SCH (21:00)
[2018-06-08 21:11] LABS: Creatine Kinase 78 U/L (39-308)
--- NOTE | 2018-06-08 21:11 | ECG ---
Date Performed: 06/08/2018 Time Performed: 16:34:49 PTAGE: 73 years EKG: ATRIAL FIBRILLATION NONSPECIFIC INTRAVENTRICULAR CONDUCTION DELAY NONSPECIFIC ST & T-WAVE A BNORMALITY ABNORMAL ECG NO PREVIOUS TRACING DOCTOR: Jakob Stuart Interpretating Date/Time 06/08/2018 21:11:10
[2018-06-09 01:47] LABS: Free T4 (Free Thyroxine) 1.26 ng/dL (0.76-1.46); Thyroid Stimulating Hormone 0.736 uIU/mL (0.358-3.740)
[2018-06-09 01:53] LABS: Creatine Kinase 57 U/L (39-308)
[2018-06-09 05:32] LABS: Baso % (Auto) 0.1 % (0.0-2.0); Eos % (Auto) 0.2 % (0.0-4.0); Hematocrit 35.3 % (39.0-51.0); Hemoglobin 12.3 gm/dL (13.0-17.0); Lymph # (Auto) 0.9 th/mm3 (1.0-4.8); Lymph % (Auto) 6.7 % (9.0-44.0); Mean Corpuscular HGB Conc 34.9 % (32.0-36.0); Mean Corpuscular Hemoglobin 32.6 pg (27.0-34.0); Mean Corpuscular Volume 93.5 fL (80.0-100.0); Mean Platelet Volume 9.2 fL (7.0-11.0); Mono # (Auto) 0.8 th/mm3 (0.0-0.9); Mono % (Auto) 6.1 % (0.0-8.0); Neut # (Auto) 11.5 th/mm3 (1.8-7.7); Neut % (Auto) 86.9 % (16.0-70.0); Platelet Count 146 th/mm3 (150-450); Red Blood Count 3.78 mil/mm3 (4.50-5.90); Red Cell Distribution Width 14.2 % (11.6-17.2); White Blood Count 13.2 th/mm3 (4.0-11.0)
[2018-06-09 06:01] LABS: Alanine Aminotransferase 39 U/L (12-78); Albumin 2.6 g/dL (3.4-5.0); Alkaline Phosphatase 87 U/L (45-117); Anion Gap 7 meq/L (5-15); Aspartate Aminotransferase 48 U/L (15-37); Blood Urea Nitrogen 29 mg/dL (7-18); Calcium 8.4 mg/dL (8.5-10.1); Carbon Dioxide 32.7 meq/L (21.0-32.0); Chloride 101 meq/L (98-107); Glomerular Filtration Rate 74 mL/min (>89); Glucose,Random 81 mg/dL (74-106); Potassium 3.2 meq/L (3.5-5.1); Sodium 141 meq/L (136-145); Total Protein 6.6 g/dL (6.4-8.2)
--- NOTE | 2018-06-09 08:47 | P.CONCA ---
History of Present Illness Primary Care Provider: Bradford De La Cruz Chief Complaint: Right lower extremity pain and swelling History of Present Illness: 73-year-old male with CAD s/p CABG, HTN, lower extremity edema, COPD. Patient presented with lower extremity cellulitis and sepsis criteria, currently undergoing treatment with IV antibiotics. He has been found to have atrial fibrillation which is a new diagnosis. Telemetry with A. fib rate 90s-120s. Patient denies any chest pain, shortness breath, palpitations, passing out. He does not follow with a soapstoner at this time, but reports he has an upcoming visit with a doctor named "LORENA". Review of Systems All other systems reviewed negative except as stated in HPI [facility] - History History Provided By: Patient, Medical Record - Medical History Medical History: Medical History (Last Reviewed 06/09/18 @ 07:32 by Krzysztof Ramires MD) Basal cell carcinoma Blockage of coronary artery of heart CAD (coronary artery disease) COPD (chronic obstructive pulmonary disease) Chest pain HTN (hypertension) High cholesterol Squamous cell carcinoma - Surgical History Surgical History: Surgical History (Last Reviewed 06/09/18 @ 07:32 by Krzysztof Ramires MD) H/O arthroscopic knee surgery Knee joint replacement status - Tobacco History Second Hand Smoke Exposure: No Tobacco Use In Past 30 Days: No Smoking Status: Former smoker - Alcohol History How Often Do You Have a Drink Containing Alcohol: 2 to 4 times a month - Substance Use History Substance History: No History of Abuse - Immunization History Tetanus Immunization: <5 Years Hx Influenza Vaccine This Season: No Medications and Allergies Active Medications: Active Medications Acetaminophen (Tylenol) 650 mg PO Q4H PRN PRN Reason: Temp > 100.4 Albuterol (Ventolin Hfa Inh) 2 puff INH Q6H PRN PRN Reason: Shortness Of Breath Aspirin (Ecotrin) 81 mg PO DAILY [facility] Atorvastatin Calcium (Lipitor) 40 mg PO DAILY@1800 [facility] Heparin Sodium (Porcine) (Heparin Inj) 5,000 units SQ DAILY [facility] Last Admin: 06/08/18 20:31 Dose: 5,000 units Vancomycin HCl 1,500 mg/ (Sodium Chloride) 515 mls @ 250 mls/hr IV.SIG Q24H [facility] Metoprolol Succinate (Toprol Xl) 100 mg PO DAILY [facility] Ondansetron HCl (Zofran Inj) 4 mg IV.PUSH Q6H PRN PRN Reason: NAUSEA OR VOMITING Pharmacy Profile Note (Vancomycin Consult Pharmacy) 1 each OTHER UNSCH PRN PRN Reason: Pharmacy to dose Sodium Chloride (Ns Flush) 2 ml IV.FLUSH BID [facility] Last Admin: 06/08/18 21:37 Dose: 2 ml Sodium Chloride (Ns Flush) 2 ml IV.FLUSH PRN PRN PRN Reason: FLUSH AFTER USING IV ACCESS Tiotropium [place] (Spiriva 18 Mcg Inh) 18 mcg INH DAILY [facility] Allergies Allergy/AdvReac Type Severity Reaction Status Date / Time Penicillins Allergy Severe syncope Verified 06/08/18 15:59 Home Medications Medication Instructions Recorded Confirmed Type albuterol sulfate [ProAir HFA] 2 puff INHALATION Q6H PRN 06/08/18 06/08/18 History aspirin 81 mg PO DAILY 06/08/18 06/08/18 History atorvastatin 40 mg PO QPM 06/08/18 06/08/18 History bumetanide 2 mg PO DAILY 06/08/18 06/08/18 History furosemide [Lasix] 40 mg PO DAILY 06/08/18 06/08/18 History isosorbide mononitrate 60 mg PO BID 06/08/18 06/08/18 History metoprolol succinate 100 mg PO DAILY 06/08/18 06/08/18 History naproxen-diphenhydramine [Aleve PM] 1 tab PO HS 06/08/18 06/08/18 History nitroglycerin 0.4 mg SUBLINGUAL Q5-15M PRN 06/08/18 06/08/18 History ranitidine HCl [Zantac] 300 mg PO DAILY PRN 06/08/18 06/08/18 History tiotropium bromide [Spiriva with 1 cap INHALATION DAILY 06/08/18 06/08/18 History [facility]] Exam Vital signs: Vital Signs 06/08/18 15:40 06/08/18 16:05 06/08/18 16:30 Temperature 97.4 F L Pulse Rate 100 H 80 Respiratory Rate 24 18 Blood Pressure 115/65 106/56 L Pulse Oximetry 98 97 97 06/08/18 16:36 06/08/18 17:53 06/08/18 19:24 Temperature Pulse Rate 100 H Respiratory Rate 15 Blood Pressure 101/54 L Pulse Oximetry 100 100 98 06/08/18 20:55 06/08/18 21:15 06/09/18 00:00 Temperature 97.9 F 98 F Pulse Rate 118 H 99 H 102 H Respiratory Rate 18 18 Blood Pressure 109/61 116/75 Pulse Oximetry 95 98 06/09/18 04:00 06/09/18 04:15 06/09/18 04:50 Temperature 97.8 F Pulse Rate 104 H 91 H Respiratory Rate 17 Blood Pressure 113/68 Pulse Oximetry 100 96 Intake & Output 06/08/18 06/09/18 06/09/18 18:59 06:59 18:59 Intake Total 1590 / 1590 Output Total 850 / 850 Balance 740 / 740 Weight 274 lb 274 lb 7.608 oz Intake: IV 1350 / 1350 NS Inj 1,000 ML @ 1000 mls/hr 1000 / 1000 IV.SIG BOLUS MARQUITA Rx#:[id number] Vancomycin Inj 1,000 MG In NS 250 / 250 Inj 250 ML @ 250 mls/hr IV.SIG ONCE ONE Rx#:[id number] Vancomycin Inj 500 MG In NS Inj 100 / 100 100 ML @ 200 mls/hr IV.SIG ONCE ONE Rx#:[id number] Oral 240 / 240 Output: Urine 850 / 850 Other: Date of Last Bowel Movement 06/08/18 # Bowel Movements 0 Weight On Admission 268 lb 8.368 oz Narrative: GENERAL: Well-developed well-nourished. Obese. In no acute distress. NECK: No carotid bruits. No JVD. CARDIOVASCULAR: Irregular rate and rhythm. No murmur appreciated. RESPIRATORY: No accessory muscle use. Clear to auscultation. Breath sounds equal bilaterally. MUSCULOSKELETAL: Lower extremity cellulitis. NEUROLOGICAL: Awake and alert. Normal speech. Results 06/09/18 04:28 06/09/18 04:28 Cardiac Enzymes 06/08/18 06/08/18 06/08/18 Range/Units 16:06 16:06 16:06 AST 31 (15-37) U/L Troponin I Less than 0.02 L (0.02-0.05) ng/mL B-Natriuretic Peptide 245 H (0-100) pg/mL 06/09/18 06/09/18 Range/Units 00:42 04:28 AST 48 H (15-37) U/L Troponin I Less than 0.02 L (0.02-0.05) ng/mL B-Natriuretic Peptide (0-100) pg/mL Coagulation 06/08/18 06/08/18 Range/Units 16:06 16:06 PT 11.9 H (9.8-11.6) sec APTT 37.5 H (23.4-31.7) sec B-Natriuretic Peptide 245 H (0-100) pg/mL CBC 06/08/18 06/09/18 Range/Units 16:06 04:28 WBC 16.3 H 13.2 H (4.0-11.0) th/mm3 RBC 4.31 L 3.78 L (4.50-5.90) mil/mm3 Hgb 13.8 12.3 L (13.0-17.0) gm/dL Hct 40.8 35.3 L (39.0-51.0) % Plt Count 160 146 L (150-450) th/mm3 Neut # (Auto) 15.0 H 11.5 H (1.8-7.7) th/mm3 Lymph # (Auto) 0.7 L 0.9 L (1.0-4.8) th/mm3 [place] # (Auto) 0.6 0.8 (0.0-0.9) th/mm3 Eos # (Auto) 0.0 0.0 (0.0-0.4) th/mm3 Baso # (Auto) 0.0 0.0 (0.0-0.2) th/mm3 Comprehensive Metabolic Panel 06/08/18 06/09/18 Range/Units 16:06 04:28 Sodium 140 141 (136-145) meq/L Potassium 3.2 L 3.2 L (3.5-5.1) meq/L Chloride 97 L 101 (98-107) meq/L Carbon Dioxide 33.0 H 32.7 H (21.0-32.0) meq/L BUN 36 H 29 H (7-18) mg/dL Creatinine 1.52 H 0.99 (0.60-1.30) mg/dL Calcium 9.2 8.4 L D (8.5-10.1) mg/dL AST 31 48 H (15-37) U/L ALT 31 39 (12-78) U/L Alkaline Phosphatase 91 87 (45-117) U/L Total Protein 7.8 6.6 D (6.4-8.2) g/dL Albumin 3.2 L 2.6 L D (3.4-5.0) g/dL Intake and Output 06/08/18 06/09/18 06/09/18 22:59 06:59 14:59 Intake Total 1350 / 1350 240 / 240 Output Total 850 / 850 Balance 1350 / 1350 -610 / -610 Intake: IV 1350 / 1350 NS Inj 1,000 ML @ 1000 mls/hr 1000 / 1000 IV.SIG BOLUS MARQUITA Rx#:[id number] Vancomycin Inj 1,000 MG In NS 250 / 250 Inj 250 ML @ 250 mls/hr IV.SIG ONCE ONE Rx#:[id number] Vancomycin Inj 500 MG In NS Inj 100 / 100 100 ML @ 200 mls/hr IV.SIG ONCE ONE Rx#:[id number] Oral 240 / 240 Output: Urine 850 / 850 Other: Date of Last Bowel Movement 06/08/18 # Bowel Movements 0 Weight 268 lb 8.368 oz 274 lb 7.608 oz Weight On Admission 268 lb 8.368 oz - Imaging and Cardiology Imaging: Impressions Chest X-Ray 06/08/18 15:59 CONCLUSION: The lungs are clear. Venous Doppler Study 06/08/18 15:59 CONCLUSION: 1. The study is negative for bilateral lower extremity deep venous thrombosis. Assessment and Plan - Plan 73-year-old male with CAD s/p CABG, HTN, lower extremity edema, COPD Atrial fibrillation: Intermittent RVR. Asymptomatic. On metoprolol 100 mg at home. BPs are borderline. Add digoxin for rate control. Chads vas at least 2 with age, discussed risk/benefits/alternatives of anticoagulation therapy for stroke prevention, patient agreeable to start on anticoagulation, would recommend Eliquis 5 mg twice daily at discharge. Echo ordered. Further management as outpatient. Call with questions. Discussed Condition With: Patient, Dr. Pendleton
[2018-06-09] MEDS: Heparin - SQ 10,000 UNITS/ML Vial SQ SCH (09:06)
[2018-06-09] MEDS: Tiotropium Bromide 18 MCG/ACT Inhaler INH SCH (09:07)
[2018-06-09] MEDS ORDERED: Digoxin 250 MCG Tablet PO ONE (09:30)
--- NOTE | 2018-06-09 11:26 | P.PNFP ---
Subjective Interval history: he believes pain and swelling improved today. no cp/sob. no palpitations. he discussed plan with cardiology for afib. no confusion urinating Results - Labs Result diagrams: 06/09/18 04:28 06/09/18 04:28 Abnormal lab results 06/08/18 06/08/18 06/08/18 Range/Units 16:06 16:06 16:06 WBC 16.3 H (4.0-11.0) th/mm3 RBC 4.31 L (4.50-5.90) mil/mm3 Hgb (13.0-17.0) gm/dL Hct (39.0-51.0) % Plt Count (150-450) th/mm3 Neut % (Auto) 92.2 H (16.0-70.0) % Lymph % (Auto) 4.1 L (9.0-44.0) % Neut # (Auto) 15.0 H (1.8-7.7) th/mm3 Lymph # (Auto) 0.7 L (1.0-4.8) th/mm3 PT 11.9 H (9.8-11.6) sec APTT 37.5 H (23.4-31.7) sec Potassium 3.2 L (3.5-5.1) meq/L Chloride 97 L (98-107) meq/L Carbon Dioxide 33.0 H (21.0-32.0) meq/L BUN 36 H (7-18) mg/dL Creatinine 1.52 H (0.60-1.30) mg/dL Estimated GFR 45 L (>89) mL/min Random Glucose 116 H (74-106) mg/dL Calcium (8.5-10.1) mg/dL Total Bilirubin 5.6 H (0.2-1.0) mg/dL Direct Bilirubin (0.0-0.2) mg/dL Indirect Bilirubin (0.0-0.8) mg/dL AST (15-37) U/L Troponin I (0.02-0.05) ng/mL B-Natriuretic Peptide (0-100) pg/mL Albumin 3.2 L (3.4-5.0) g/dL 06/08/18 06/08/18 06/09/18 Range/Units 16:06 16:06 00:42 WBC (4.0-11.0) th/mm3 RBC (4.50-5.90) mil/mm3 Hgb (13.0-17.0) gm/dL Hct (39.0-51.0) % Plt Count (150-450) th/mm3 Neut % (Auto) (16.0-70.0) % Lymph % (Auto) (9.0-44.0) % Neut # (Auto) (1.8-7.7) th/mm3 Lymph # (Auto) (1.0-4.8) th/mm3 PT (9.8-11.6) sec APTT (23.4-31.7) sec Potassium (3.5-5.1) meq/L Chloride (98-107) meq/L Carbon Dioxide (21.0-32.0) meq/L BUN (7-18) mg/dL Creatinine (0.60-1.30) mg/dL Estimated GFR (>89) mL/min Random Glucose (74-106) mg/dL Calcium (8.5-10.1) mg/dL Total Bilirubin (0.2-1.0) mg/dL Direct Bilirubin (0.0-0.2) mg/dL Indirect Bilirubin (0.0-0.8) mg/dL AST (15-37) U/L Troponin I Less than 0.02 L Less than 0.02 L (0.02-0.05) ng/mL B-Natriuretic Peptide 245 H (0-100) pg/mL Albumin (3.4-5.0) g/dL 06/09/18 06/09/18 06/09/18 Range/Units 04:28 04:28 04:28 WBC 13.2 H (4.0-11.0) th/mm3 RBC 3.78 L (4.50-5.90) mil/mm3 Hgb 12.3 L (13.0-17.0) gm/dL Hct 35.3 L (39.0-51.0) % Plt Count 146 L (150-450) th/mm3 Neut % (Auto) 86.9 H (16.0-70.0) % Lymph % (Auto) 6.7 L (9.0-44.0) % Neut # (Auto) 11.5 H (1.8-7.7) th/mm3 Lymph # (Auto) 0.9 L (1.0-4.8) th/mm3 PT (9.8-11.6) sec APTT (23.4-31.7) sec Potassium 3.2 L (3.5-5.1) meq/L Chloride (98-107) meq/L Carbon Dioxide 32.7 H (21.0-32.0) meq/L BUN 29 H (7-18) mg/dL Creatinine (0.60-1.30) mg/dL Estimated GFR 74 L (>89) mL/min Random Glucose (74-106) mg/dL Calcium 8.4 L D (8.5-10.1) mg/dL Total Bilirubin 3.9 H 3.9 H (0.2-1.0) mg/dL Direct Bilirubin 0.7 H (0.0-0.2) mg/dL Indirect Bilirubin 3.2 H (0.0-0.8) mg/dL AST 48 H (15-37) U/L Troponin I (0.02-0.05) ng/mL B-Natriuretic Peptide (0-100) pg/mL Albumin 2.6 L D (3.4-5.0) g/dL Short CBC 06/08/18 06/09/18 Range/Units 16:06 04:28 WBC 16.3 H 13.2 H (4.0-11.0) th/mm3 Hgb 13.8 12.3 L (13.0-17.0) gm/dL Hct 40.8 35.3 L (39.0-51.0) % Plt Count 160 146 L (150-450) th/mm3 BMP 06/08/18 06/09/18 16:06 04:28 Sodium 140 141 Potassium 3.2 L 3.2 L Chloride 97 L 101 Carbon Dioxide 33.0 H 32.7 H BUN 36 H 29 H Creatinine 1.52 H 0.99 Calcium 9.2 8.4 L D Cardiac Enzymes 06/08/18 06/09/18 Range/Units 16:06 00:42 Total Creatine Kinase 78 57 (39-308) U/L Troponin I Less than 0.02 L Less than 0.02 L (0.02-0.05) ng/mL Liver Function 06/08/18 06/09/18 06/09/18 Range/Units 16:06 04:28 04:28 Total Bilirubin 5.6 H 3.9 H 3.9 H (0.2-1.0) mg/dL Direct Bilirubin 0.7 H (0.0-0.2) mg/dL AST 31 48 H (15-37) U/L ALT 31 39 (12-78) U/L Alkaline Phosphatase 91 87 (45-117) U/L Albumin 3.2 L 2.6 L D (3.4-5.0) g/dL - Imaging Impressions Chest X-Ray 06/08/18 15:59 CONCLUSION: The lungs are clear. Venous Doppler Study 06/08/18 15:59 CONCLUSION: 1. The study is negative for bilateral lower extremity deep venous thrombosis. Physical Exam Vital signs: Vital Signs 06/08/18 15:40 06/08/18 16:05 06/08/18 16:30 Temperature 97.4 F L Pulse Rate 100 H 80 Respiratory Rate 24 18 Blood Pressure 115/65 106/56 L Pulse Oximetry 98 97 97 06/08/18 16:36 06/08/18 17:53 06/08/18 19:24 Temperature Pulse Rate 100 H Respiratory Rate 15 Blood Pressure 101/54 L Pulse Oximetry 100 100 98 06/08/18 20:55 06/08/18 21:15 06/09/18 00:00 Temperature 97.9 F 98 F Pulse Rate 118 H 99 H 102 H Respiratory Rate 18 18 Blood Pressure 109/61 116/75 Pulse Oximetry 95 98 06/09/18 04:00 06/09/18 04:15 06/09/18 04:50 Temperature 97.8 F Pulse Rate 104 H 91 H Respiratory Rate 17 Blood Pressure 113/68 Pulse Oximetry 100 96 06/09/18 08:00 06/09/18 11:14 Temperature 97.7 F Pulse Rate 100 H Respiratory Rate 18 Blood Pressure 118/70 Pulse Oximetry 94 L 94 L Intake & Output 06/08/18 06/09/18 06/09/18 18:59 06:59 18:59 Intake Total 1590 / 1590 Output Total 850 / 850 Balance 740 / 740 Weight 124.284 kg 124.5 kg Intake: IV 1350 / 1350 NS Inj 1,000 ML @ 1000 mls/hr 1000 / 1000 IV.SIG BOLUS MARQUITA Rx#:[id number] Vancomycin Inj 1,000 MG In NS 250 / 250 Inj 250 ML @ 250 mls/hr IV.SIG ONCE ONE Rx#:[id number] Vancomycin Inj 500 MG In NS Inj 100 / 100 100 ML @ 200 mls/hr IV.SIG ONCE ONE Rx#:[id number] Oral 240 / 240 Output: Urine 850 / 850 Other: Date of Last Bowel Movement 06/08/18 # Bowel Movements 0 Weight On Admission 121.8 kg - Constitutional no acute distress, morbidly obese - Routine HEENT Exam Head: Present: normocephalic, atraumatic Eye: Present: EOMI, PERRL ENT: Present: mucous membranes moist - Routine Neck Exam Present: supple - Routine Respiratory Exam Present: CTA bilaterally. Absent: stridor, wheezes, crackles - Routine Cardiovascular Exam Present: S1, S2, irregular rhythm. Absent: murmur - Routine Abdominal Exam Present: soft, normoactive bowel sounds. Absent: tenderness, distended, rebound - Routine Extremities Exam Absent: cyanosis Comments: significant erythema of right leg, seems to have same distribution as demarcated yesterday. erythema lightened today per resident team that admitted yesterday. some small bullae and serous drainage onto sheet. pitting edema of right leg but not left. DP pulse felt 1+ on left only. - Routine Skin Exam Present: erythema. Absent: mottling, gangrene, ecchymosis - Routine Neurological Exam Present: alert, oriented X3. Absent: sensory deficit, motor deficit - Routine Psychiatric Exam Present: normal affect, normal thought process Assessment and Plan - Assessment (1) Sepsis Code(s): A41.9 - Sepsis, unspecified organism Status: Acute (2) Cellulitis Code(s): L03.90 - Cellulitis, unspecified Status: Acute (3) Atrial fibrillation Code(s): I48.91 - Unspecified atrial fibrillation Status: Acute (4) Hypokalemia Code(s): E87.6 - Hypokalemia Status: Acute (5) CHF (congestive heart failure) Code(s): I50.9 - Heart failure, unspecified Status: Acute (6) Nutrition, metabolism, and development symptoms Code(s): R63.8 - Other symptoms and signs concerning food and fluid intake Status: Acute (7) DVT prophylaxis Status: Acute - Assessment and Plan Sepsis secondary to right lower extremity cellulitis improving on vanc. will monitor fluid status without any more IVF for now blood cx pending LA normal Atrial fibrillation, new onset, undetermined timing cardiology evaluated, added dig for rate control cont metoprolol start eliquis 5mg BID ECHO pending replace K other lytes, TSH nl Hyperbilirubinemia- asymptomatic improved today, not enough other signs of end organ dysfunction to be sure it is entirely sepsis will fractionate and trend if unconjugated primarily may check hemolysis labs if conjugated primarily check RUQ US Hypokalemia replacing CHF ECHO pending monitor fluid status start diuretic if clinically indicated SPRING- resolved COPD home meds HTN home meds HLD home meds DVT prophylaxis -starting eliquis (2) Cellulitis Qualifiers: Site of cellulitis: extremity Site of cellulitis of extremity: lower extremity Laterality: right Qualified Code(s): L03.115 - Cellulitis of right lower limb (3) Atrial fibrillation Qualifiers: Atrial fibrillation type: unspecified Qualified Code(s): I48.91 - Unspecified atrial fibrillation
--- NOTE | 2018-06-09 11:28 | ECG ---
Date Performed: 06/09/2018 Time Performed: 01:58:52 PTAGE: 73 years EKG: Probable atrial fibrillation with rapid ventricular response with frequent PVCs Extensive S T-T changes are nonspecific Abnormal ECG PREVIOUS TRACING : 06/08/2018 16.34 No significant change from previous tracing noted. DOCTOR: Jakob Stuart Interpretating Date/Time 06/09/2018 11:27:48
[2018-06-09] MEDS: Vancomycin Inj 1,500 MG in Sodium Chlor 0.9% Inj 500 ML IV.SIG SCH (13:25)
[2018-06-09 15:53] LABS: Haptoglobin 347 mg/dL (30-200); Lactate Dehydrogenase 281 U/L (87-241)
[2018-06-09] MEDS: Potassium Chloride 25 MEQ Effervescent Tablet PO SCH ×2 (16:16→21:34)
--- NOTE | 2018-06-09 17:14 | ECHRPT ---
Indication: ATRIAL FIB/FLUTTER CONCLUSIONS Normal left ventricular size. Mild concentric left ventricular hypertrophy. The left ventricular systolic function is mildly reduced with an estimated ejection fraction in the range of 45- 50%. The right ventricle is mildly dilated. The left atrial size is mildly dilated. [id number] mitral valve regurgitation. There is mild to moderate tricuspid valve regurgitation. The estimated pulmonary arterial pressure is 61 mmHg. BP: / HR: Rhythm: Sinus MEASUREMENTS (Male / Female) Normal Values Technical Quality:Fair 2D ECHO LV Diastolic Diameter PLAX 4.8 cm 4.2 - 5.9 / 3.9 - 5.3 cm LV Systolic Diameter PLAX 3.6 cm IVS Diastolic Thickness 1.0 cm 0.6 - 1.0 / 0.6 - 0.9 cm LVPW Diastolic Thickness 1.3 cm 0.6 - 1.0 / 0.6 - 0.9 cm LV Relative Wall Thickness 0.5 RV Internal Dim ED PLAX 3.2 cm LVOT Diameter 1.9 cm Aortic Root Diameter 3.4 cm LA Systolic Diameter LX 4.5 cm 3.0 - 4.0 / 2.7 - 3.8 cm M-MODE AV Cusp Separation MM 2.2 cm DOPPLER AV Peak Velocity 130.5 cm/s AV Peak Gradient 6.8 mmHg AV Mean Gradient 4.0 mmHg AV Velocity Time Integral 19.4 cm LVOT Peak Velocity 80.1 cm/s LVOT Peak Gradient 2.6 mmHg LVOT Velocity Time Integral 13.7 cm AV Area Cont Eq vti 2.0 cm AV Area Cont Eq pk 1.7 cm Mitral E Point Velocity 86.5 cm/s LV E' Lateral Velocity 16.2 cm/s Mitral E to LV E' Lateral Ratio 5.3 LV E' Septal Velocity 12.8 cm/s Mitral E to LV E' Septal Ratio 6.7 TR Peak Velocity 356.0 cm/s TR Peak Gradient 50.7 mmHg PV Peak Velocity 53.0 cm/s PV Peak Gradient 1.1 mmHg FINDINGS LEFT VENTRICLE Normal left ventricular size. Mild concentric left ventricular hypertrophy. The left ventricular systolic function is mildly reduced with an estimated ejection fraction in the range of 45- 50%. RIGHT VENTRICLE The right ventricle is mildly dilated. LEFT ATRIUM The left atrial size is mildly dilated. RIGHT ATRIUM The right atrial size is normal. ATRIAL SEPTUM No atrial level shunt is demonstrated by color flow Doppler interrogation. AORTA The aortic root and proximal ascending aorta are not well visualized. MITRAL VALVE [id number] mitral valve regurgitation. AORTIC VALVE Trileaflet aortic valve. No aortic valve stenosis or regurgitation. TRICUSPID VALVE There is mild to moderate tricuspid valve regurgitation. The estimated pulmonary arterial pressure is 61 mmHg. PULMONARY VALVE No pulmonary valve regurgitation or stenosis. VESSELS There is less than 50% respiratory change in dimension of the inferior vena cava (abnormal). PERICARDIUM No pericardial effusion. Fabrice Sparrow MD, FACC (Electronically Signed) Final Date:09 June 2018 17:12
[2018-06-09 22:51] LABS: Reticulocyte Percent 1.1 % (0.4-3.0)
[2018-06-10] MEDS: Vancomycin Inj 1,500 MG in Sodium Chlor 0.9% Inj 500 ML IV.SIG SCH (08:55)
[2018-06-10] MEDS: Digoxin 125 MCG Tablet PO SCH (08:57)
[2018-06-10] MEDS: Potassium Chloride 25 MEQ Effervescent Tablet PO SCH ×2 (08:58→21:31)
[2018-06-10] MEDS: Tiotropium Bromide 18 MCG/ACT Inhaler INH SCH (09:02)
[2018-06-10 11:06] LABS: Baso % (Auto) 0.1 % (0.0-2.0); Eos # (Auto) 0.1 th/mm3 (0.0-0.4); Hematocrit 40.4 % (39.0-51.0); Hemoglobin 13.9 gm/dL (13.0-17.0); Lymph # (Auto) 0.8 th/mm3 (1.0-4.8); Lymph % (Auto) 10.8 % (9.0-44.0); Mean Corpuscular HGB Conc 34.5 % (32.0-36.0); Mean Corpuscular Hemoglobin 32.9 pg (27.0-34.0); Mean Corpuscular Volume 95.3 fL (80.0-100.0); Mean Platelet Volume 9.5 fL (7.0-11.0); Mono # (Auto) 0.5 th/mm3 (0.0-0.9); Mono % (Auto) 6.5 % (0.0-8.0); Neut # (Auto) 5.7 th/mm3 (1.8-7.7); Neut % (Auto) 81.6 % (16.0-70.0); Platelet Count 183 th/mm3 (150-450); Red Blood Count 4.24 mil/mm3 (4.50-5.90); Red Cell Distribution Width 14.4 % (11.6-17.2)
[2018-06-10] MEDS: Furosemide 40 MG Tablet PO SCH (11:21)
--- NOTE | 2018-06-10 11:24 | P.PNFP ---
Subjective Interval history: Patient was seen and evaluated this morning. He reports feeling well. He denies leg pain. He denies chest pain, shortness of breath, nausea, vomiting, diarrhea and constipation. Patient asked to reach out to (Iris: [phone]) to provide her with update. All questions were answered. <Karina Chasity Mcgovern - 06/10/18 12:11> Results - Labs Result diagrams: 06/10/18 10:10 06/10/18 10:10 <Krzysztof Ramires - 06/10/18 18:25> Abnormal lab results 06/10/18 06/10/18 Range/Units 10:10 10:10 RBC 4.24 L (4.50-5.90) mil/mm3 Neut % (Auto) 81.6 H (16.0-70.0) % Lymph # (Auto) 0.8 L (1.0-4.8) th/mm3 BUN 19 H (7-18) mg/dL Random Glucose 169 H (74-106) mg/dL Total Bilirubin 2.9 H (0.2-1.0) mg/dL AST 258 H (15-37) U/L ALT 237 H (12-78) U/L Alkaline Phosphatase 126 H (45-117) U/L Albumin 2.7 L (3.4-5.0) g/dL Short CBC 06/10/18 Range/Units 10:10 WBC 7.0 (4.0-11.0) th/mm3 Hgb 13.9 (13.0-17.0) gm/dL Hct 40.4 (39.0-51.0) % Plt Count 183 (150-450) th/mm3 [facility] 06/10/18 10:10 Sodium 140 Potassium 3.5 Chloride 100 Carbon Dioxide 30.8 BUN 19 H Creatinine 0.84 Calcium 9.3 D Liver Function 06/10/18 Range/Units 10:10 Total Bilirubin 2.9 H (0.2-1.0) mg/dL AST 258 H (15-37) U/L ALT 237 H (12-78) U/L Alkaline Phosphatase 126 H (45-117) U/L Albumin 2.7 L (3.4-5.0) g/dL <Krzysztof Ramires - 06/10/18 18:25> Abnormal lab results 06/08/18 06/09/18 06/10/18 Range/Units 16:06 04:28 10:10 RBC 4.24 L (4.50-5.90) mil/mm3 Neut % (Auto) 81.6 H (16.0-70.0) % Lymph # (Auto) 0.8 L (1.0-4.8) th/mm3 Haptoglobin 347 H (30-200) mg/dL Potassium 3.2 L 3.2 L (3.5-5.1) meq/L Chloride 97 L (98-107) meq/L Carbon Dioxide 33.0 H 32.7 H (21.0-32.0) meq/L BUN 36 H 29 H (7-18) mg/dL Creatinine 1.52 H (0.60-1.30) mg/dL Estimated GFR 45 L 74 L (>89) mL/min Random Glucose 116 H (74-106) mg/dL Calcium 8.4 L D (8.5-10.1) mg/dL Total Bilirubin 5.6 H 3.9 H (0.2-1.0) mg/dL AST 48 H (15-37) U/L Lactate Dehydrogenase 281 H (87-241) U/L Albumin 3.2 L 2.6 L D (3.4-5.0) g/dL Short CBC 06/10/18 Range/Units 10:10 WBC 7.0 (4.0-11.0) th/mm3 Hgb 13.9 (13.0-17.0) gm/dL Hct 40.4 (39.0-51.0) % Plt Count 183 (150-450) th/mm3 BMP 06/08/18 06/09/18 16:06 04:28 Sodium 140 141 Potassium 3.2 L 3.2 L Chloride 97 L 101 Carbon Dioxide 33.0 H 32.7 H BUN 36 H 29 H Creatinine 1.52 H 0.99 Calcium 9.2 8.4 L D Liver Function 06/08/18 06/09/18 Range/Units 16:06 04:28 Total Bilirubin 5.6 H 3.9 H (0.2-1.0) mg/dL AST 31 48 H (15-37) U/L ALT 31 39 (12-78) U/L Alkaline Phosphatase 91 87 (45-117) U/L Albumin 3.2 L 2.6 L D (3.4-5.0) g/dL <Jasminanishant Chasity Mcgovern - 06/10/18 11:24> Physical Exam Vital signs: Vital Signs 06/09/18 20:00 06/09/18 23:50 06/10/18 00:00 Temperature 98.6 F Pulse Rate 116 H 91 H 101 H Respiratory Rate 14 18 Blood Pressure 125/59 L 129/78 Pulse Oximetry 96 96 06/10/18 03:50 06/10/18 04:00 06/10/18 08:00 Temperature 98 F 97.7 F Pulse Rate 90 116 H 94 H Respiratory Rate 18 20 Blood Pressure 110/67 123/74 Pulse Oximetry 94 L 95 06/10/18 12:00 06/10/18 16:00 Temperature 97.8 F 97.8 F Pulse Rate 119 H 89 Respiratory Rate 18 20 Blood Pressure 124/73 120/78 Pulse Oximetry 94 L 96 Intake & Output 06/09/18 06/10/18 06/10/18 18:59 06:59 18:59 Intake Total 1475 / 1475 600 / 600 1475 / 1475 Output Total 1500 / 1500 100 / 100 1200 / 1200 Balance -25 / -25 500 / 500 275 / 275 Weight 125.9 kg Intake: IV 515 / 515 515 / 515 Vancomycin Inj 1,500 MG In NS 515 / 515 515 / 515 Inj 500 ML @ 257.5 mls/hr IV. SIG Q18H [facility] Rx#:[id number] Oral 960 / 960 600 / 600 960 / 960 Output: Urine 1500 / 1500 100 / 100 1200 / 1200 Other: Date of Last Bowel Movement 06/08/18 # Bowel Movements 1 0 1 <Krzysztof Ramires - 06/10/18 18:25> Vital Signs 06/09/18 12:00 06/09/18 16:00 06/09/18 20:00 Temperature 97.9 F 98.2 F 98.6 F Pulse Rate 129 H 98 H 116 H Respiratory Rate 18 18 14 Blood Pressure 131/84 117/73 125/59 L Pulse Oximetry 95 96 96 06/09/18 23:50 06/10/18 00:00 06/10/18 03:50 Temperature 98 F Pulse Rate 91 H 101 H 90 Respiratory Rate 18 18 Blood Pressure 129/78 110/67 Pulse Oximetry 96 94 L 06/10/18 04:00 06/10/18 08:00 Temperature 97.7 F Pulse Rate 116 H 94 H Respiratory Rate 20 Blood Pressure 123/74 Pulse Oximetry 95 Intake & Output 06/09/18 06/10/18 06/10/18 18:59 06:59 18:59 Intake Total 1475 / 1475 600 / 600 515 / 515 Output Total 1500 / 1500 100 / 100 Balance -25 / -25 500 / 500 515 / 515 Weight 125.9 kg Intake: IV 515 / 515 515 / 515 Vancomycin Inj 1,500 MG In NS 515 / 515 515 / 515 Inj 500 ML @ 257.5 mls/hr IV. SIG Q18H [facility] Rx#:[id number] Oral 960 / 960 600 / 600 Output: Urine 1500 / 1500 100 / 100 Other: Date of Last Bowel Movement 06/08/18 # Bowel Movements 1 0 <LabelChasity Oseguera - 06/10/18 11:24> Narrative: GENERAL: Well-developed well-nourished. Obese. In no acute distress. CARDIOVASCULAR: Irregular rate and rhythm. No murmur appreciated. RESPIRATORY: No accessory muscle use. Clear to auscultation. Breath sounds equal bilaterally. MUSCULOSKELETAL: Right lower extremity cellulitis: erythema of right leg up to thigh, lightened as compared to day of admission; small bullae and serous drainage onto sheet; pitting edema of right leg only; DP pulse felt 1+ on left only. NEUROLOGICAL: Awake and alert. Normal speech. <LabelChasity Oseguera - 06/10/18 12:11> Assessment and Plan - Assessment (1) Sepsis Code(s): A41.9 - Sepsis, unspecified organism Status: Resolved (2) Cellulitis Code(s): L03.90 - Cellulitis, unspecified Status: Acute (3) Atrial fibrillation Code(s): I48.91 - Unspecified atrial fibrillation Status: Acute (4) CHF (congestive heart failure) Code(s): I50.9 - Heart failure, unspecified Status: Chronic (5) Hypokalemia Code(s): E87.6 - Hypokalemia Status: Resolved (6) Hyperbilirubinemia Code(s): E80.6 - Other disorders of bilirubin metabolism Status: Acute (7) Nutrition, metabolism, and development symptoms Code(s): R63.8 - Other symptoms and signs concerning food and fluid intake Status: Acute (8) DVT prophylaxis Status: Acute <Krzysztof Ramires - 06/10/18 18:25> (1) Sepsis Code(s): A41.9 - Sepsis, unspecified organism Status: Resolved Plan: Resolved. Secondary to right lower extremity cellulitis. Improving. Lactic acid wnl. Blood culture: no growth to date. Wound culture: Staphylococcus aureus and Group B beta Strep. Continue vancomycin (06/09/18 - ). (2) Cellulitis Code(s): L03.90 - Cellulitis, unspecified Status: Acute Plan: See Plan above. (3) Atrial fibrillation Code(s): I48.91 - Unspecified atrial fibrillation Status: Acute Plan: Patient with new-onset A. fib. TSH wnl. Electrolytes wnl. ECHO: Normal left ventricular size. Mild concentric left ventricular hypertrophy. The left ventricular systolic function is mildly reduced with an estimated ejection fraction in the range of 45- 50%. The right ventricle is mildly dilated. The left atrial size is mildly dilated. [id number] mitral valve regurgitation. There is mild to moderate tricuspid valve regurgitation. The estimated pulmonary arterial pressure is 61 mmHg. Cardiology consulted; appreciate recommendations. Continue home metoprolol. Started on digoxin 06/09/18. Started on Eliquis 5mg PO BID 06/09/18. (4) CHF (congestive heart failure) Code(s): I50.9 - Heart failure, unspecified Status: Chronic Plan: See plan above. Avoid IV fluids. Continue home Lasix 40mg PO daily. (5) Hypokalemia Code(s): E87.6 - Hypokalemia Status: Resolved Plan: Resolved as of 06/10/18. KCl 25meq PO BID. (6) Hyperbilirubinemia Code(s): E80.6 - Other disorders of bilirubin metabolism Status: Acute Plan: Asymptomatic. Improved. Direct 0.7H. Indirect 3.2H. Blood smear read pending. Retic count wnl. Haptoglobin 347. LDH 281. Monitor. (7) Nutrition, metabolism, and development symptoms Code(s): R63.8 - Other symptoms and signs concerning food and fluid intake Status: Acute Plan: Fluid: Tolerating PO. Nutrition: Cardiac diet. Electrolytes: Monitor and replete as necessary. (8) DVT prophylaxis Status: Acute Plan: Eliquis started as above. <Chasity Ortega - 06/10/18 11:50> - Assessment and Plan Discharge Planning: Likely tomorrow or early next week pending continued clinical improvement. <Chasity Ortega - 06/10/18 12:11> - Attending Attestation The exam, history, and the medical decision-making described in the above note were completed with the assistance of the resident physician. I reviewed and agree with the findings presented. I attest that I had a [id number] encounter with the patient on the same day, and personally performed and documented my assessment and findings in the medical record. no concerns today sepsis resolved cellulitis appears to be resolving slightly heavy staph aureus and beta strep on wound culture awaiting staph s/s before PO transition, plan to transition tomorrow and hopefully d/c pt tomorrow or next day start diuretics with his heart failure, could benefit from ACEi, BB if BP will tolerate on eliquis, digoxin for afib now and rate controlled. <Krzysztof Ramires - 06/10/18 18:25> <Chasity Ortega - Last Filed: 06/10/18 11:50> (2) Cellulitis Qualifiers: Site of cellulitis: extremity Site of cellulitis of extremity: lower extremity Laterality: right Qualified Code(s): L03.115 - Cellulitis of right lower limb (3) Atrial fibrillation Qualifiers: Atrial fibrillation type: unspecified Qualified Code(s): I48.91 - Unspecified atrial fibrillation <Krzysztof Ramires - Last Filed: 06/10/18 18:25> (2) Cellulitis Qualifiers: Site of cellulitis: extremity Site of cellulitis of extremity: lower extremity Laterality: right Qualified Code(s): L03.115 - Cellulitis of right lower limb (3) Atrial fibrillation Qualifiers: Atrial fibrillation type: unspecified Qualified Code(s): I48.91 - Unspecified atrial fibrillation <Chasity Ortega - Last Filed: 06/10/18 11:50> (2) Cellulitis Qualifiers: Site of cellulitis: extremity Site of cellulitis of extremity: lower extremity Laterality: right Qualified Code(s): L03.115 - Cellulitis of right lower limb (3) Atrial fibrillation Qualifiers: Atrial fibrillation type: unspecified Qualified Code(s): I48.91 - Unspecified atrial fibrillation <Krzysztof Ramires - Last Filed: 06/10/18 18:25> (2) Cellulitis Qualifiers: Site of cellulitis: extremity Site of cellulitis of extremity: lower extremity Laterality: right Qualified Code(s): L03.115 - Cellulitis of right lower limb (3) Atrial fibrillation Qualifiers: Atrial fibrillation type: unspecified Qualified Code(s): I48.91 - Unspecified atrial fibrillation
[2018-06-10 11:53] LABS: Alanine Aminotransferase 237 U/L (12-78); Albumin 2.7 g/dL (3.4-5.0); Alkaline Phosphatase 126 U/L (45-117); Anion Gap 9 meq/L (5-15); Aspartate Aminotransferase 258 U/L (15-37); Blood Urea Nitrogen 19 mg/dL (7-18); Calcium 9.3 mg/dL (8.5-10.1); Carbon Dioxide 30.8 meq/L (21.0-32.0); Chloride 100 meq/L (98-107); Glomerular Filtration Rate 89 mL/min (>89); Glucose,Random 169 mg/dL (74-106); Potassium 3.5 meq/L (3.5-5.1); Sodium 140 meq/L (136-145); Total Protein 7.5 g/dL (6.4-8.2)
[2018-06-11] MEDS ORDERED: Pharmacy Ordered Lab Info OTHER ONE (01:45)
[2018-06-11] MEDS: Vancomycin Inj 1,500 MG in Sodium Chlor 0.9% Inj 500 ML IV.SIG SCH (02:10)
[2018-06-11 08:28] LABS: Hematocrit 38.5 % (39.0-51.0); Mean Corpuscular HGB Conc 33.6 % (32.0-36.0); Mean Corpuscular Hemoglobin 31.7 pg (27.0-34.0); Mean Corpuscular Volume 94.2 fL (80.0-100.0); Platelet Count 193 th/mm3 (150-450); Red Blood Count 4.09 mil/mm3 (4.50-5.90); Red Cell Distribution Width 14.6 % (11.6-17.2); White Blood Count 5.5 th/mm3 (4.0-11.0)
[2018-06-11 08:52] LABS: Albumin 2.4 g/dL (3.4-5.0); Anion Gap 9 meq/L (5-15); Aspartate Aminotransferase 207 U/L (15-37); Blood Urea Nitrogen 18 mg/dL (7-18); Carbon Dioxide 27.8 meq/L (21.0-32.0); Chloride 102 meq/L (98-107); Glomerular Filtration Rate Greater Than 89 mL/min (>89); Glucose,Random 88 mg/dL (74-106); Potassium 3.6 meq/L (3.5-5.1); Sodium 139 meq/L (136-145)
[2018-06-11 08:53] LABS: Alanine Aminotransferase 240 U/L (12-78)
[2018-06-11 08:56] LABS: Alkaline Phosphatase 115 U/L (45-117); Total Protein 6.8 g/dL (6.4-8.2)
--- NOTE | 2018-06-11 09:42 | US ---
EXAM DATE: 06/11/2018 9:27 AM EST AGE/SEX: 73 years / Male INDICATIONS: Abdominal pain. CLINICAL DATA: This is the patient's initial encounter. Patient reports that signs and symptoms have been present for 1 day and indicates a pain score of 2/10. MEDICAL/SURGICAL HISTORY: Chronic obstructive pulmonary disease. Hypercholesterolemia. Hypert ension. Basal cell carcinoma. Coronary artery disease. Arthroscopy. Knee replacement. COMPARISON: No prior exams available for comparison. MEASUREMENTS: Liver:__ 19.4 cm. Common Bile Duct:__ 2mm. Right Kidney:__ 12.9 x 6.1 x 6.7 cm. FINDINGS: Liver: Increased echogenicity without focal lesion or ductal dilatation. Portal Vein: Hepatopedal flow seen in portal vein. Common Duct: No intraluminal mass or stone visualized. Gallbladder: Demonstrates no wall thickening or pericholecystic fluid. No stones visualized. Pancreas: The visualized portions are within normal limits Right Kidney: Normal echogenicity and cortical thickness. No mass or hydronephrosis. Other: None. CONCLUSION: 1. Echogenic liver without ductal dilatation. 2. No ascites. 3. No gallstones Electronically signed by: Ken Adhikari MD Board Certified Radiologist 06/11/2018 9:41 AM EST
--- NOTE | 2018-06-11 10:11 | P.PNFP ---
Subjective Interval history: Patient seen and examined. Patient states that his ankle and foot swelling stayed about the same since yesterday and at the pus-like drainage from the leg continued overnight. He notes that the redness has gone down significantly since admission and that his thigh and knee are no longer swollen. States that he is able to weight-bear without significant pain this morning. He denies any fevers overnight. Denies nausea, vomiting, chest pain, or shortness of breath. Will call , Iris, , to update. All questions answered this morning. <Stephanie Stone B - 06/11/18 11:55> Results - Labs Result diagrams: 06/11/18 06:10 06/11/18 06:10 <Krzysztof Ramires - 06/11/18 13:16> Abnormal lab results 06/11/18 06/11/18 06/11/18 Range/Units 02:00 06:10 06:10 RBC 4.09 L (4.50-5.90) mil/mm3 Hct 38.5 L (39.0-51.0) % Total Bilirubin 1.9 H (0.2-1.0) mg/dL AST 207 H (15-37) U/L ALT 240 H (12-78) U/L Albumin 2.4 L (3.4-5.0) g/dL Vancomycin Trough 11.3 H (5.0-10.0) mcg/mL Short CBC 06/11/18 Range/Units 06:10 WBC 5.5 (4.0-11.0) th/mm3 Hgb 13.0 (13.0-17.0) gm/dL Hct 38.5 L (39.0-51.0) % Plt Count 193 (150-450) th/mm3 BMP 06/11/18 06:10 Sodium 139 Potassium 3.6 Chloride 102 Carbon Dioxide 27.8 BUN 18 Creatinine 0.70 Calcium 9.0 Liver Function 06/11/18 Range/Units 06:10 Total Bilirubin 1.9 H (0.2-1.0) mg/dL AST 207 H (15-37) U/L ALT 240 H (12-78) U/L Alkaline Phosphatase 115 (45-117) U/L Albumin 2.4 L (3.4-5.0) g/dL <Krzysztof Ramires - 06/11/18 13:16> Abnormal lab results 06/10/18 06/10/18 06/11/18 Range/Units 10:10 10:10 02:00 RBC 4.24 L (4.50-5.90) mil/mm3 Hct (39.0-51.0) % Neut % (Auto) 81.6 H (16.0-70.0) % Lymph # (Auto) 0.8 L (1.0-4.8) th/mm3 BUN 19 H (7-18) mg/dL Random Glucose 169 H (74-106) mg/dL Total Bilirubin 2.9 H (0.2-1.0) mg/dL AST 258 H (15-37) U/L ALT 237 H (12-78) U/L Alkaline Phosphatase 126 H (45-117) U/L Albumin 2.7 L (3.4-5.0) g/dL Vancomycin Trough 11.3 H (5.0-10.0) mcg/mL 06/11/18 06/11/18 Range/Units 06:10 06:10 RBC 4.09 L (4.50-5.90) mil/mm3 Hct 38.5 L (39.0-51.0) % Neut % (Auto) (16.0-70.0) % Lymph # (Auto) (1.0-4.8) th/mm3 BUN (7-18) mg/dL Random Glucose (74-106) mg/dL Total Bilirubin 1.9 H (0.2-1.0) mg/dL AST 207 H (15-37) U/L ALT 240 H (12-78) U/L Alkaline Phosphatase (45-117) U/L Albumin 2.4 L (3.4-5.0) g/dL Vancomycin Trough (5.0-10.0) mcg/mL Short CBC 06/10/18 06/11/18 Range/Units 10:10 06:10 WBC 7.0 5.5 (4.0-11.0) th/mm3 Hgb 13.9 13.0 (13.0-17.0) gm/dL Hct 40.4 38.5 L (39.0-51.0) % Plt Count 183 193 (150-450) th/mm3 BMP 06/10/18 06/11/18 10:10 06:10 Sodium 140 139 Potassium 3.5 3.6 Chloride 100 102 Carbon Dioxide 30.8 27.8 BUN 19 H 18 Creatinine 0.84 0.70 Calcium 9.3 D 9.0 Liver Function 06/10/18 06/11/18 Range/Units 10:10 06:10 Total Bilirubin 2.9 H 1.9 H (0.2-1.0) mg/dL AST 258 H 207 H (15-37) U/L ALT 237 H 240 H (12-78) U/L Alkaline Phosphatase 126 H 115 (45-117) U/L Albumin 2.7 L 2.4 L (3.4-5.0) g/dL <Stephanie Stone - 06/11/18 10:11> - Imaging Impressions Liver Ultrasound 06/11/18 00:00 CONCLUSION: 1. Echogenic liver without ductal dilatation. 2. No ascites. 3. No gallstones <Krzysztof Ramires - 06/11/18 13:16> Impressions Liver Ultrasound 06/11/18 00:00 CONCLUSION: 1. Echogenic liver without ductal dilatation. 2. No ascites. 3. No gallstones <Stephanie Stone - 06/11/18 10:11> Physical Exam Vital signs: Vital Signs 06/10/18 16:00 06/10/18 17:46 06/10/18 19:10 Temperature 97.8 F 98.0 F Pulse Rate 89 96 H 87 Respiratory Rate 20 18 Blood Pressure 120/78 112/74 Pulse Oximetry 96 87 L 06/10/18 20:00 06/10/18 21:40 06/10/18 23:45 Temperature 97.9 F Pulse Rate 119 H 85 Respiratory Rate 18 Blood Pressure 123/68 Pulse Oximetry 94 L 97 06/11/18 01:00 06/11/18 02:55 06/11/18 04:00 Temperature 97.9 F Pulse Rate 89 87 101 H Respiratory Rate 18 Blood Pressure 117/80 Pulse Oximetry 97 06/11/18 08:00 Temperature 97.9 F Pulse Rate 99 H Respiratory Rate 18 Blood Pressure 144/86 H Pulse Oximetry 96 Intake & Output 06/10/18 06/11/18 06/11/18 18:59 06:59 18:59 Intake Total 1475 / 1475 515 / 515 Output Total 1200 / 1200 350 / 350 Balance 275 / 275 165 / 165 Weight 126.9 kg Intake: IV 515 / 515 515 / 515 Vancomycin Inj 1,500 MG In NS 515 / 515 515 / 515 Inj 500 ML @ 257.5 mls/hr IV. SIG Q18H [facility] Rx#:[id number] Oral 960 / 960 Output: Urine 1200 / 1200 350 / 350 Other: # Voids 2 Date of Last Bowel Movement 06/08/18 06/08/18 # Bowel Movements 1 <Krzysztof Ramires - 06/11/18 13:16> Vital Signs 06/10/18 12:00 06/10/18 16:00 06/10/18 17:46 Temperature 97.8 F 97.8 F Pulse Rate 119 H 89 96 H Respiratory Rate 18 20 Blood Pressure 124/73 120/78 Pulse Oximetry 94 L 96 06/10/18 19:10 06/10/18 20:00 06/10/18 21:40 Temperature 98.0 F Pulse Rate 87 119 H Respiratory Rate 18 Blood Pressure 112/74 Pulse Oximetry 87 L 94 L 06/10/18 23:45 06/11/18 01:00 06/11/18 02:55 Temperature 97.9 F 97.9 F Pulse Rate 85 89 87 Respiratory Rate 18 18 Blood Pressure 123/68 117/80 Pulse Oximetry 97 97 06/11/18 04:00 06/11/18 08:00 Temperature 97.9 F Pulse Rate 101 H 100 H Respiratory Rate 18 Blood Pressure 144/86 H Pulse Oximetry 97 Intake & Output 06/10/18 06/11/18 06/11/18 18:59 06:59 18:59 Intake Total 1475 / 1475 515 / 515 Output Total 1200 / 1200 350 / 350 Balance 275 / 275 165 / 165 Weight 126.9 kg Intake: IV 515 / 515 515 / 515 Vancomycin Inj 1,500 MG In NS 515 / 515 515 / 515 Inj 500 ML @ 257.5 mls/hr IV. SIG Q18H [facility] Rx#:[id number] Oral 960 / 960 Output: Urine 1200 / 1200 350 / 350 Other: # Voids 2 Date of Last Bowel Movement 06/08/18 # Bowel Movements 1 <Stephanie Stone - 06/11/18 10:11> Narrative: GENERAL: Well-developed well-nourished. Obese. In no acute distress. CARDIOVASCULAR: Irregular rate and rhythm. No murmur appreciated. RESPIRATORY: No accessory muscle use. Clear to auscultation. Breath sounds equal bilaterally. MUSCULOSKELETAL: Right lower extremity cellulitis: erythema of right leg up knee , lightened as compared to day of admission; small bullae and serous drainage onto sheet; moderate pitting edema of right leg only, similar to admission; DP pulse felt 1+ on left only. NEUROLOGICAL: Awake and alert. Normal speech. <Stephanie Stone - 06/11/18 11:49> Assessment and Plan - Assessment (1) Sepsis Code(s): A41.9 - Sepsis, unspecified organism Status: Resolved (2) Cellulitis Code(s): L03.90 - Cellulitis, unspecified Status: Acute (3) Atrial fibrillation Code(s): I48.91 - Unspecified atrial fibrillation Status: Acute (4) CHF (congestive heart failure) Code(s): I50.9 - Heart failure, unspecified Status: Chronic (5) Hypokalemia Code(s): E87.6 - Hypokalemia Status: Resolved (6) Hyperbilirubinemia Code(s): E80.6 - Other disorders of bilirubin metabolism Status: Acute (7) Transaminitis Code(s): R74.0 - Nonspecific elevation of levels of transaminase and lactic acid dehydrogenase [LDH] Status: Acute (8) Nutrition, metabolism, and development symptoms Code(s): R63.8 - Other symptoms and signs concerning food and fluid intake Status: Acute (9) DVT prophylaxis Status: Acute <KeylaKrzysztof Stephany - 06/11/18 13:16> (1) Sepsis Code(s): A41.9 - Sepsis, unspecified organism Status: Resolved Plan: Resolved. Secondary to right lower extremity cellulitis. Improving. Lactic acid wnl. Blood culture: no growth to date. Wound culture: Staphylococcus aureus and Group B beta Strep Vancomycin stopped (06/09/18 - 06/11/18) Switch to p.o. antibiotics with cephalexin p.o. 500 mg every 6 hours Benadryl as needed for allergic reaction (2) Cellulitis Code(s): L03.90 - Cellulitis, unspecified Status: Acute Plan: See Plan above. (3) Atrial fibrillation Code(s): I48.91 - Unspecified atrial fibrillation Status: Acute Plan: Patient with new-onset A. fib. TSH wnl. Electrolytes wnl. ECHO: Normal left ventricular size. Mild concentric left ventricular hypertrophy. The left ventricular systolic function is mildly reduced with an estimated ejection fraction in the range of 45- 50%. The right ventricle is mildly dilated. The left atrial size is mildly dilated. [id number] mitral valve regurgitation. There is mild to moderate tricuspid valve regurgitation. The estimated pulmonary arterial pressure is 61 mmHg. Cardiology consulted: Continue home metoprolol 100mg daily. Started on digoxin 06/09/18. Started on Eliquis 5mg PO BID 06/09/18. Recommend follow-up as outpatient. (4) CHF (congestive heart failure) Code(s): I50.9 - Heart failure, unspecified Status: Chronic Plan: See plan above. Avoid IV fluids. Lasix 40mg PO daily, switched to Bumex 1 mg p.o. daily. Continue to monitor for signs of fluid overload (5) Hypokalemia Code(s): E87.6 - Hypokalemia Status: Resolved Plan: Resolved as of 06/10/18. KCl 25meq PO BID. (6) Hyperbilirubinemia Code(s): E80.6 - Other disorders of bilirubin metabolism Status: Acute Plan: Asymptomatic. Improved. Direct 0.7H. Indirect 3.2H. Blood smear read pending. Retic count wnl. Haptoglobin 347. LDH 281. Continue to monitor (7) Transaminitis Code(s): R74.0 - Nonspecific elevation of levels of transaminase and lactic acid dehydrogenase [LDH] Status: Acute Plan: Worsening from admission AST/ALT on admission 48/39, increased to 258/237 today Ultrasound of the liver showed: 1. Echogenic liver without ductal dilatation. 2. No ascites. 3. No gallstones Avoid hepatic toxic medications. Continue monitor, may require outpatient workup. (8) Nutrition, metabolism, and development symptoms Code(s): R63.8 - Other symptoms and signs concerning food and fluid intake Status: Acute Plan: Fluid: Tolerating PO. Nutrition: Cardiac diet. Electrolytes: Monitor and replete as necessary. (9) DVT prophylaxis Status: Acute Plan: Eliquis started as above. <Stephanie Stone - 06/11/18 11:49> - Assessment and Plan DW Dr. Ramires <Stephanie Stone - 06/11/18 11:55> - Attending Attestation The exam, history, and the medical decision-making described in the above note were completed with the assistance of the resident physician. I reviewed and agree with the findings presented. I attest that I had a [id number] encounter with the patient on the same day, and personally performed and documented my assessment and findings in the medical record. breathing well today, cellulitis improving, still weeping. MSSA and GBS on cultures will try PO transition to keflex and see how he tolerates allergy to penicillin is that he passed out after a shot in the [place] but was not hospitalized but has never taken it again. not sure about cephalosporins if he has had them. will need HH wound care and possibly PT at discharge if he is able to go tomorrow resuming home bumex. transaminitis work up unrevealing so far, does appear to have a diffuse hepatic process based on ultrasound and will likely need outpatient follow up. check hep panel today. With such high Tbili that has since resolved and transaminitis now could have been passed stone. will likely need advanced imaging and further lab work up if does not improve as outpatieint. <Krzysztof Ramires - 06/11/18 13:16> <Stephanie Stone - Last Filed: 06/11/18 11:49> (2) Cellulitis Qualifiers: Site of cellulitis: extremity Site of cellulitis of extremity: lower extremity Laterality: right Qualified Code(s): L03.115 - Cellulitis of right lower limb (3) Atrial fibrillation Qualifiers: Atrial fibrillation type: unspecified Qualified Code(s): I48.91 - Unspecified atrial fibrillation <Krzysztof Ramires - Last Filed: 06/11/18 13:16> (2) Cellulitis Qualifiers: Site of cellulitis: extremity Site of cellulitis of extremity: lower extremity Laterality: right Qualified Code(s): L03.115 - Cellulitis of right lower limb (3) Atrial fibrillation Qualifiers: Atrial fibrillation type: unspecified Qualified Code(s): I48.91 - Unspecified atrial fibrillation <Terence TahminaStephanie B - Last Filed: 06/11/18 11:49> (2) Cellulitis Qualifiers: Site of cellulitis: extremity Site of cellulitis of extremity: lower extremity Laterality: right Qualified Code(s): L03.115 - Cellulitis of right lower limb (3) Atrial fibrillation Qualifiers: Atrial fibrillation type: unspecified Qualified Code(s): I48.91 - Unspecified atrial fibrillation <Krzysztof Ramires - Last Filed: 06/11/18 13:16> (2) Cellulitis Qualifiers: Site of cellulitis: extremity Site of cellulitis of extremity: lower extremity Laterality: right Qualified Code(s): L03.115 - Cellulitis of right lower limb (3) Atrial fibrillation Qualifiers: Atrial fibrillation type: unspecified Qualified Code(s): I48.91 - Unspecified atrial fibrillation
[2018-06-11] MEDS: Digoxin 125 MCG Tablet PO SCH (10:56)
[2018-06-11] MEDS: Potassium Chloride 25 MEQ Effervescent Tablet PO SCH ×2 (10:57→20:23)
[2018-06-11] MEDS: Furosemide 40 MG Tablet PO SCH (10:57)
[2018-06-11] MEDS: Tiotropium Bromide 18 MCG/ACT Inhaler INH SCH (10:59)
--- NOTE | 2018-06-11 13:30 | P.DCO ---
- Physical Therapy Order: Evaluate and treat, Improve ambulation - Home Health Nursing Order: Wound care and dressing changes - Case Management Consult Case Management Consult-Home Health: Yes - Certification I have seen patient Roseanna Peres on 06/11/18. My clinical findings support the need for the requested home health care services because: Limited mobility due to disease progression, Limited ability to care for self, Infection with risk of complications I certify that my clinical findings support that this patient is homebound because: Unsteady gait/balance
[2018-06-11 15:59] LABS: Hepatitits B Surface Antigen Nonreactive (Nonreactive)
[2018-06-11 16:27] LABS: Hepatitis A IgM Antibody Nonreactive (Nonreactive)
[2018-06-12 08:39] VITALS: BP 105/82; RESP 20; TEMP 97.7; O2SAT 95
--- NOTE | 2018-06-12 08:48 | P.PNFP ---
Subjective Interval history: Patient seen and examined this morning. Patient states that he tolerated the p.o. antibiotic well overnight. Patient states that the leg continues to drain slowly, but not as much as on admission. Still notes continued swelling of the foot. Discussed importance of keeping the foot and leg uncovered and elevating feet when sitting or laying down. He otherwise denies fevers, headache, nausea , vomiting, shortness of breath, chest pain, abdominal pain, or increased pain in the legs. Patient states that he feels comfortable going home with home health which can help with wound care. Will call and discuss plan for discharge with . All questions answered. <Terence MartelStephanie Alfreda - 06/12/18 10:59> Results - Labs Result diagrams: 06/11/18 06:10 06/12/18 11:13 <Krzysztof Ramires - 06/12/18 18:28> Abnormal lab results 06/12/18 Range/Units 11:13 Estimated GFR 77 L (>89) mL/min Random Glucose 178 H (74-106) mg/dL Total Bilirubin 2.0 H (0.2-1.0) mg/dL AST 132 H (15-37) U/L ALT 234 H (12-78) U/L Alkaline Phosphatase 144 H (45-117) U/L Albumin 2.9 L (3.4-5.0) g/dL [facility] 06/12/18 11:13 Sodium 141 Potassium 3.9 Chloride 103 Carbon Dioxide 31.4 BUN 17 Creatinine 0.95 Calcium 9.0 Liver Function 06/12/18 Range/Units 11:13 Total Bilirubin 2.0 H (0.2-1.0) mg/dL AST 132 H (15-37) U/L ALT 234 H (12-78) U/L Alkaline Phosphatase 144 H (45-117) U/L Albumin 2.9 L (3.4-5.0) g/dL <Krzysztof Ramires - 06/12/18 18:28> Abnormal lab results 06/11/18 Range/Units 06:10 Total Bilirubin 1.9 H (0.2-1.0) mg/dL AST 207 H (15-37) U/L ALT 240 H (12-78) U/L Albumin 2.4 L (3.4-5.0) g/dL [facility] 06/11/18 06:10 Sodium 139 Potassium 3.6 Chloride 102 Carbon Dioxide 27.8 BUN 18 Creatinine 0.70 Calcium 9.0 Liver Function 06/11/18 Range/Units 06:10 Total Bilirubin 1.9 H (0.2-1.0) mg/dL AST 207 H (15-37) U/L ALT 240 H (12-78) U/L Alkaline Phosphatase 115 (45-117) U/L Albumin 2.4 L (3.4-5.0) g/dL <Stephanie Stone - 06/12/18 08:47> - Imaging Impressions Liver Ultrasound 06/11/18 00:00 CONCLUSION: 1. Echogenic liver without ductal dilatation. 2. No ascites. 3. No gallstones <Stephanie Stone - 06/12/18 08:47> Physical Exam Vital signs: Vital Signs 06/11/18 19:10 06/11/18 20:00 06/11/18 23:05 Temperature 97.9 F 97.8 F Pulse Rate 97 H 93 H 95 H Respiratory Rate 18 18 Blood Pressure 115/79 139/84 Pulse Oximetry 96 96 06/12/18 00:00 06/12/18 03:05 06/12/18 04:00 Temperature 97.5 F L Pulse Rate 103 H 87 101 H Respiratory Rate 18 Blood Pressure 111/80 Pulse Oximetry 97 06/12/18 08:00 06/12/18 10:46 Temperature 97.7 F Pulse Rate 85 Respiratory Rate 20 Blood Pressure 105/82 Pulse Oximetry 95 95 Intake & Output 06/11/18 06/12/18 06/12/18 18:59 06:59 18:59 Intake Total 480 / 480 320 / 320 Output Total 400 / 400 600 / 600 Balance 80 / 80 -280 / -280 Weight 127.8 kg Intake: Oral 480 / 480 320 / 320 Output: Urine 400 / 400 600 / 600 Other: # Voids 2 Date of Last Bowel Movement 06/08/18 06/08/18 <Krzysztof Ramires - 06/12/18 18:28> Vital Signs 06/11/18 12:00 06/11/18 16:00 06/11/18 19:10 Temperature 98.2 F 97.7 F 97.9 F Pulse Rate 83 87 97 H Respiratory Rate 18 18 18 Blood Pressure 136/80 130/81 115/79 Pulse Oximetry 97 96 96 06/11/18 20:00 06/11/18 23:05 06/12/18 00:00 Temperature 97.8 F Pulse Rate 93 H 95 H 103 H Respiratory Rate 18 Blood Pressure 139/84 Pulse Oximetry 96 06/12/18 03:05 06/12/18 04:00 06/12/18 08:00 Temperature 97.5 F L 97.7 F Pulse Rate 87 101 H 93 H Respiratory Rate 18 20 Blood Pressure 111/80 105/82 Pulse Oximetry 97 95 Intake & Output 06/11/18 06/12/18 06/12/18 18:59 06:59 18:59 Intake Total 480 / 480 320 / 320 Output Total 400 / 400 600 / 600 Balance 80 / 80 -280 / -280 Weight 127.8 kg Intake: Oral 480 / 480 320 / 320 Output: Urine 400 / 400 600 / 600 Other: # Voids 2 Date of Last Bowel Movement 06/08/18 <Terence MartelStephanie - 06/12/18 08:47> Narrative: GENERAL: Well-developed well-nourished. Obese. Sitting up in chair. In no acute distress. CARDIOVASCULAR: Irregular rate and rhythm. No murmur appreciated. RESPIRATORY: No accessory muscle use. Clear to auscultation. Breath sounds equal bilaterally. MUSCULOSKELETAL: Right lower extremity cellulitis: erythema of right leg up knee , lightened as compared to day of admission; small bullae and serous drainage onto drape; moderate pitting edema of right leg only, similar to admission; DP pulse felt 1+ on left only. NEUROLOGICAL: Awake and alert. Normal speech. <Terence MartelStephanie Alfreda - 06/12/18 10:59> Assessment and Plan - Assessment (1) Sepsis Code(s): A41.9 - Sepsis, unspecified organism Status: Resolved (2) Cellulitis Code(s): L03.90 - Cellulitis, unspecified Status: Acute (3) Atrial fibrillation Code(s): I48.91 - Unspecified atrial fibrillation Status: Acute (4) Transaminitis Code(s): R74.0 - Nonspecific elevation of levels of transaminase and lactic acid dehydrogenase [LDH] Status: Acute (5) CHF (congestive heart failure) Code(s): I50.9 - Heart failure, unspecified Status: Chronic (6) Nutrition, metabolism, and development symptoms Code(s): R63.8 - Other symptoms and signs concerning food and fluid intake Status: Acute (7) DVT prophylaxis Status: Acute <Krzysztof Ramires - 06/12/18 18:28> (1) Sepsis Code(s): A41.9 - Sepsis, unspecified organism Status: Resolved Plan: Resolved. Secondary to right lower extremity cellulitis. Improving. Lactic acid wnl. Blood culture: no growth to date. Wound culture: Staphylococcus aureus and Group B beta Strep Vancomycin stopped (06/09/18 - 06/11/18) Switched to p.o. antibiotics with cephalexin p.o. 500 mg every 6 hours 06/11 -Tolerated well overnight, we will discharge with 11 more days of p.o. antibiotic, for 14 days total of antibiotic coverage. -Recommend outpatient follow-up in the next week (2) Cellulitis Code(s): L03.90 - Cellulitis, unspecified Status: Acute Plan: See Plan above. (3) Atrial fibrillation Code(s): I48.91 - Unspecified atrial fibrillation Status: Acute Plan: Patient with new-onset A. fib. TSH wnl. Electrolytes wnl. ECHO: Normal left ventricular size. Mild concentric left ventricular hypertrophy. The left ventricular systolic function is mildly reduced with an estimated ejection fraction in the range of 45- 50%. The right ventricle is mildly dilated. The left atrial size is mildly dilated. [id number] mitral valve regurgitation. There is mild to moderate tricuspid valve regurgitation. The estimated pulmonary arterial pressure is 61 mmHg. Cardiology consulted: Continue home metoprolol 100mg daily. Started on digoxin 06/09/18. Started on Eliquis 5mg PO BID 06/09/18. Recommend follow-up as outpatient. (4) Transaminitis Code(s): R74.0 - Nonspecific elevation of levels of transaminase and lactic acid dehydrogenase [LDH] Status: Acute Plan: Worsened from admission, however, improved from yesterday. Ultrasound of the liver showed: 1. Echogenic liver without ductal dilatation. 2. No ascites. 3. No gallstones Avoid hepatic toxic medications. Recommend outpatient workup. (5) CHF (congestive heart failure) Code(s): I50.9 - Heart failure, unspecified Status: Chronic Plan: See plan above. Avoid IV fluids. Lasix 40mg PO daily, switched to Bumex 1 mg p.o. daily. (6) Nutrition, metabolism, and development symptoms Code(s): R63.8 - Other symptoms and signs concerning food and fluid intake Status: Acute Plan: Fluid: Tolerating PO. Nutrition: Cardiac diet. Electrolytes: Monitor and replete as necessary. (7) DVT prophylaxis Status: Acute Plan: Eliquis started as above. <Stephanie Stone - 06/12/18 11:10> - Assessment and Plan DW Dr. Ramires <Stephanie Stone - 06/12/18 11:02> Discharge Planning: Patient to be discharged home with home health for continued wound care. <Stephanie Stone - 06/12/18 11:04> - Attending Attestation The exam, history, and the medical decision-making described in the above note were completed with the assistance of the resident physician. I reviewed and agree with the findings presented. I attest that I had a [id number] encounter with the patient on the same day, and personally performed and documented my assessment and findings in the medical record. cellulitis and edema improving today. HR relatively controlled. BP still borderline low. Can go home with PT and woundcare will need uptitration of beta ezequiel and possible addition of ACEi if BP tolerates as outpatient holding statin for now to recheck transaminitis as outpatient. continue bumex <Krzysztof Ramires - 06/12/18 18:28> <Stephanie Stone - Last Filed: 06/12/18 11:10> (2) Cellulitis Qualifiers: Site of cellulitis: extremity Site of cellulitis of extremity: lower extremity Laterality: right Qualified Code(s): L03.115 - Cellulitis of right lower limb (3) Atrial fibrillation Qualifiers: Atrial fibrillation type: unspecified Qualified Code(s): I48.91 - Unspecified atrial fibrillation <Krzysztof Ramires - Last Filed: 06/12/18 18:28> (2) Cellulitis Qualifiers: Site of cellulitis: extremity Site of cellulitis of extremity: lower extremity Laterality: right Qualified Code(s): L03.115 - Cellulitis of right lower limb (3) Atrial fibrillation Qualifiers: Atrial fibrillation type: unspecified Qualified Code(s): I48.91 - Unspecified atrial fibrillation <Stephanie Stone B - Last Filed: 06/12/18 11:10> (2) Cellulitis Qualifiers: Site of cellulitis: extremity Site of cellulitis of extremity: lower extremity Laterality: right Qualified Code(s): L03.115 - Cellulitis of right lower limb (3) Atrial fibrillation Qualifiers: Atrial fibrillation type: unspecified Qualified Code(s): I48.91 - Unspecified atrial fibrillation <Krzysztof Ramires - Last Filed: 06/12/18 18:28> (2) Cellulitis Qualifiers: Site of cellulitis: extremity Site of cellulitis of extremity: lower extremity Laterality: right Qualified Code(s): L03.115 - Cellulitis of right lower limb (3) Atrial fibrillation Qualifiers: Atrial fibrillation type: unspecified Qualified Code(s): I48.91 - Unspecified atrial fibrillation
[2018-06-12] MEDS: Potassium Chloride 25 MEQ Effervescent Tablet PO SCH (08:49)
[2018-06-12] MEDS: Tiotropium Bromide 18 MCG/ACT Inhaler INH SCH (08:49)
[2018-06-12] MEDS: Digoxin 125 MCG Tablet PO SCH (08:49)
[2018-06-12 11:20] VITALS: PULSE 85
[2018-06-12 12:31] LABS: Alanine Aminotransferase 234 U/L (12-78); Albumin 2.9 g/dL (3.4-5.0); Anion Gap 7 meq/L (5-15); Aspartate Aminotransferase 132 U/L (15-37); Blood Urea Nitrogen 17 mg/dL (7-18); Carbon Dioxide 31.4 meq/L (21.0-32.0); Chloride 103 meq/L (98-107); Glomerular Filtration Rate 77 mL/min (>89); Glucose,Random 178 mg/dL (74-106); Potassium 3.9 meq/L (3.5-5.1); Sodium 141 meq/L (136-145)
[2018-06-12 12:33] LABS: Alkaline Phosphatase 144 U/L (45-117); Total Protein 7.8 g/dL (6.4-8.2)
[2018-06-13] MEDS ORDERED: Pharmacy Ordered Lab Info OTHER ONE (01:45)
== END 2018-06-12 11:30 | disposition home health service (06) | DRG 872 ==
LOC: NEPD 15:35 → NEDA 18:20 → N04 20:53
PROVIDERS: ADMIT Family Medicine; ATTEND Family Medicine
CPT/HCPCS: 71010; 71045; 76705; 76937; 80053; 80074; 80202; 82247; 82248; 82550; 83010; 83520; 83605; 83615; 83735; 83880; 84439; 84443; 84484; 85025; 85027; 85044; 85610; 85730; 86403; 87040; 87070; 87147; 87186; 87205; 90765; 90775; 93005; 93306; 93970; 96365; 96375; 99285; J1644; J1940; J3370; J7030; J7040; J7050